=== PATIENT | female | born 1990 | race Caucasian/White ===

== ENCOUNTER 2023-08-01 21:08 | Inpatient (IN) | payer OTHER, SELFPAY ==
--- NOTE | 2023-08-01 | ECG_ITS ---
Test Reason : SEIZYRE Blood Pressure : / mmHG Vent. Rate : 111 BPM Atrial Rate : 111 BPM P-R Int : 120 ms QRS Dur : 074 ms QT Int : 354 ms P-R-T Axes : 031 024 -15 degrees QTc Int : 481 ms Sinus tachycardia Anterior infarct , age undetermined Abnormal ECG No previous ECGs available Referred By: Valorie Styles Electronically Signed By:Blas Lopez
--- NOTE | ~2023-08-01 | US_ITS ---
EXAMINATION: US ABDOMEN COMPLETE CLINICAL INFORMATION: Elevated LFTs, EtOH abuse. Rule out ascites. COMPARISON: None available. TECHNIQUE: Real-time imaging of the abdominal viscera. FINDINGS: PANCREAS: Normal. ABDOMINAL AORTA: The proximal, mid, and distal segments are normal in caliber. INFERIOR VENA CAVA: Visualized portions are normal. LIVER: Normal. The liver is normal in size. The liver contour is normal. Parenchymal echogenicity is normal. No focal hepatic lesion. There is no intrahepatic biliary duct dilatation seen. GALLBLADDER gallbladder wall thickness is 0.3 cm. The gallbladder is physiologically distended without evidence of stones, sludge, polyps, wall thickening or pericholecystic fluid. COMMON BILE DUCT: Normal in caliber measuring 0.4 cm in diameter. RIGHT KIDNEY: Normal. No hydronephrosis. No renal calculi or focal parenchymal lesions. The kidney measures 11.3 cm in maximum dimension. LEFT KIDNEY: Normal. No hydronephrosis. No renal calculi or focal parenchymal lesions. The kidney measures 11.4 cm in maximum dimension. SPLEEN: The spleen is enlarged. The spleen measures 13.2 cm in maximum dimension. FREE FLUID: There is no ascites seen. US/US abdomen complete IMPRESSION: There is no free fluid in the abdomen. Mild splenomegaly. Rest of the abdominal ultrasound is unremarkable.
--- NOTE | ~2023-08-01 | XR_ITS ---
EXAMINATION: XR CHEST CLINICAL INFORMATION: Aspiration. COMPARISON: None available. TECHNIQUE: Frontal view of the chest was obtained. FINDINGS: The lungs are well-expanded and clear. Heart size and pulmonary vascularity is normal. No gross bony abnormality seen. XR/XR chest 1V IMPRESSION: Unremarkable chest exam.
--- NOTE | ~2023-08-01 | CT_ITS ---
CT/CT cervical spine wo IV con IMPRESSION: CT brain, CT facial bones and CT cervical spine without contrast. CLINICAL INDICATIONS: Seizure, fall and neck trauma. Pain. COMPARISON: None. TECHNIQUE: 5 mm thin axial and reformatted 2 mm thin sagittal and coronal images of brain were obtained. Axial 3 mm thin and reformatted 1.5 mm thin sagittal coronal images of facial bones were obtained. Lastly axial 3 minutes thin and reformatted 2 mm thin sagittal coronal images of cervical spine were obtained. DLP [id number]. FINDINGS: Brain: There is no acute intra-axial, extra-axial bleed, masses or midline shift. There is no acute infarction evolution. There is no edema. The raymundo to white matter differentiation is maintained normal. The lateral ventricles are symmetrical in size and normal. Bone windows reveal right periorbital and frontal soft tissue swelling. No underlying calvarial fracture seen. Bilateral optic globe, optic nerves and paranasal sinuses including mastoid sinuses are clear. No scalp soft tissue abnormality seen. Facial bones: The paranasal sinuses are well aerated with minimal mucoperiosteal thickening left maxillary sinus. Rest of the paranasal sinuses are clear.. The bony sinus doshi, lamina papyracea and cribriform plate are intact. There is mild deviation of nasal septum to the right with edmund bullosa of left middle turbinate. The bony orbits, optic globe and optic nerves and extraocular muscles are normal size. There is no fracture involving nasal, maxillofacial or mandible bones. Bilateral TM joints are symmetrical and normal. Cervical spine: There is mild straightening of cervical lordosis. The vertebral heights, alignment and disc heights are normal. There is no visible acute fracture, dislocation or subluxation seen. However there is mild deformity involving superior endplate of T1 vertebra with a small enthesophyte versus a small bone fracture. The prevertebral and paravertebral soft tissues are normal. IMPRESSION:: Right periorbital soft tissue swelling but no underlying fracture involving the right bony alignment on the frontal bone. There is no acute intracranial process seen. Mild mucoperiosteal thickening left maxillary sinus. No acute fracture or traumatic process seen. Mild deviation of nasal septum to the right with edmund bullosa of left middle turbinate there is no visible acute fracture, dislocation subluxation cervical spine.
[2023-08-01 21:26] LABS: Glucose, Whole Blood 144 mg/dL (60-115)
[2023-08-01 21:29] VITALS: BMI 21.5
--- NOTE | 2023-08-01 21:32 | PC.NURSE ---
ENVIRONMENTAL COMPLIANCE MANAGER CALLED [employer] TO CONFIRM PATIENT'S ALLERGIES AND TO REQUEST PAPERWORK TO BE FAXED THE PATIENT CAME WITH LITTLE TO NO DOCUMENTS/PAPERWORK. FAX NUMBER PROVIDED, CHARGE WILL FOLLOW UP. CONTACT IS [phone]
--- NOTE | 2023-08-01 21:40 | PC.NURSE ---
[phone] quentin sissy johnson
[2023-08-01 21:41] LABS: MANUAL DIFF FLAG NO
[2023-08-01 21:49] LABS: INTERNATIONAL NORM RATIO 1.7 (0.9-1.1); Prothrombin Time 20.3 SEC (11.1-13.3)
[2023-08-01] MEDS: PHENobarbitaL sodium 130 MG/ML IM ONCE 228.8 MG IM (21:49)
[2023-08-01 21:50] LABS: Basophils Percent Auto 0.8 % (0-2); Eosinophils Percent Auto 0.2 % (0-4); Hematocrit 30.1 % (37.0-47.0); Hemoglobin 9.8 g/dl (12.0-16.0); Imm Gran Abs Auto 0.05 X10*3/uL (0.00-0.03); Lymphocytes Absolute Auto 0.5 X10*3/uL (1.2-4.9); Mean Corpuscular HGB Conc 32.6 g/dl (31.0-35.0); Mean Corpuscular Hemoglobin 27.6 pg (27.0-33.0); Mean Corpuscular Volume 84.8 fL (80.0-98.0); Mean Platelet Volume 10.4 fL (9.4-12.3); Monocytes Absolute Auto 0.5 X10*3/uL (0.1-1.2); Monocytes Percent Auto 8.7 % (2-11); Neutrophils Absolute Auto 4.1 x10*3/uL (2.0-8.3); Neutrophils Percent Auto 79.3 % (45-73); Red Blood Count 3.55 X10*6/uL (4.20-5.50); Red Cell Distribution Width 17.3 % (11.0-16.0); White Blood Count 5.2 X10*3/uL (4.8-10.8)
--- NOTE | 2023-08-01 21:55 | ED.SEIZURE ---
HPI - Seizure General Chief Complaint: [facility], no hx epilepsy Time Seen by Provider: 08/01/23 21:21 Source: EMS and old records reviewed Mode of arrival: EMS Limitations: altered mental status History of Present Illness HPI Narrative: 33 yo female brought to our hospital from [facility] was in there for about 1 hour intake for depression/anxiety and eating disorder as well as ETOH and liver disease - she had 1 or 2 witnessed GTC seizures lasting 50 seconds. Patient hit her head on the ground. She receieved IM versed 10mg total at 2048 by EMS. She did present to an outside hospital on 07/30 with ETOH level of 360. Was assesed by Crisis at [facility] ([facility]) and serious alcohol use disorder was reported though no seizure hx documented. I see no alcohol withdrawal medications given while she was at [place]. According to the note it looks at though Rosa Elena has been hospitalized in [place], [place] for her mental health and ETOH issues. outside labs Hb 11.4, plts 75 tbili 3.9, dbili 1.6, AST 168, ALT 36 parents number was listed in a note as [phone] complaint: seizure Onset (ago): hour(s) (within the past hour) Description of Episode: loss of consciousness and tonic-clonic movement Duration of episode: 50 -: second(s) Witnessed: Yes - by EMS Trauma: Yes (hit head on ground) Seizure History: No (unknown) Place: [facility] Possible Precipitating Event: alcohol withdrawal Associated symptoms: denies other symptoms Treatments prior to arrival: benzodiazepines Related Data Allergies Allergy/AdvReac Type Severity Reaction Status Date / Time benzonatate Allergy Unknown Verified 08/01/23 21:29 Latex, Natural Rubber Allergy Rash Verified 08/01/23 21:29 Seasonal Allergies Allergy Unknown Verified 08/01/23 21:29 sulfamethoxazole Allergy Unknown Verified 08/01/23 21:29 [From Bactrim] trimethoprim [From Bactrim] Allergy Unknown Verified 08/01/23 21:29 Review of Systems Review of Systems: ROS unable to be obtained due to altered mental status PMFSH Past Medical History Source: old records reviewed Medical History Alcohol abuse Anxiety Depression Social History Social History (Updated 08/01/23 @ 22:18 by Valorie Styles DO) Unable to assess alcohol history related to: Unable to respond Alcohol intake: current Patient Tobacco Use Status: Tobacco use Unknown Smoked in Last 30 Days: No Use of substances other than those prescribed or required for medical reasons: Unable to respond Advance Directives: No Advance Directives Information Provided: No Physical Exam Vital Signs: Vital Signs: Last Vital Signs Temp 98 F 08/01/23 22:09 Pulse 82 08/02/23 03:00 Resp 14 08/02/23 03:00 BP 119/71 08/02/23 03:00 Pulse Ox 97 08/02/23 03:00 O2 Del Method Room Air 08/02/23 03:00 BMI result Body Mass Index 21.5 Appearance: postictal not able to answer questions. Moderate acute distress. Eyes: Pupils equal, round and reactive to light. slightly sluggish. scleral icterus R eye is normal no hyphema EOM i and no subconj hemorrhage ENT: Pharynx she has non bleeding abrasions to both sides of the tongue. Large contusion to R eyebrow area no racoon or galeano signs no hemotympanum no blood from nares Neck: Normal inspection. Neck supple. CVS: tachycardic heart rate and rhythm. Pulses normal. Respiratory: No respiratory distress. Breath sounds normal. Abdomen: Soft and non-tender. Skin: Skin warm and dry. jaundiced skin color. Normal skin turgor. Extremities: No lower extremity edema. Neuro: postictal and medicated cannot participate Course Course Course Narrative: did attempt to call parents no answer did call here he is aware she is at [facility] Reevaluation(s) Reevaluation #1: VS stable, patient did wake up was able to say her name didn't know what happened we had to tell her she was at [facility] went back to sleep afterwards Medications Administered Generic Name Dose Route Start Last Admin Trade Name Freq PRN Reason Stop Dose Admin Dextrose/Sodium Chloride 1,000 mls @ 75 mls/hr 08/02/23 00:15 08/02/23 01:02 D5ns IVCONT 75 mls/hr .[id number] JO ANN Administration Phenobarbital Sodium 170.3 mg 08/02/23 02:00 08/02/23 02:35 Phenobarbital Sodium 130 Mg/Ml Vial Im Q3hx2 IM 08/02/23 05:01 170.3 mg Q3H JO ANN Administration Protocol Discontinued Medications Generic Name Dose Route Start Last Admin Trade Name Sharon PRN Reason Stop Dose Admin Magnesium Sulfate 2 gm in 50 mls @ 25 mls/hr 08/01/23 21:30 08/02/23 00:05 Magnesium Sulfate/H2o IV 08/01/23 23:29 Infused ONCE ONE Infusion Thiamine HCl 200 mg/ Sodium 102 mls @ 204 mls/hr 08/01/23 21:30 08/01/23 23:48 Chloride IV 08/01/23 21:59 Infused ONCE ONE Infusion Sodium Chloride 1,000 mls @ 999 mls/hr 08/01/23 21:30 08/01/23 23:17 Ns IV 08/01/23 22:30 Infused .Q1H1M JO ANN Infusion Ondansetron HCl 4 mg 08/01/23 21:30 08/01/23 22:05 Ondansetron Hcl 4 Mg/2 Ml Vial IVPUSH 08/01/23 21:31 4 mg ONCE ONE Administration Pantoprazole Sodium 40 mg 08/02/23 00:15 08/02/23 01:17 Pantoprazole Sodium 40 Mg/10 Ml Vial IVPUSH Not Given DAILY JO ANN Phenobarbital Sodium 228.8 mg 08/01/23 22:00 08/01/23 21:49 Phenobarbital Sodium 130 Mg/Ml Im Once IM 08/01/23 22:01 228.8 mg ONCE ONE Administration Protocol Medical Decision Making Medical Decision Making [facility] Narrative: 33 yo female with PMH of eating disorder, depression/anxiety, alcohol use disorder here from intake at [facility] with witnessed seizure at this time given head trauma and prior abnormal labs from [facility] will start on phenobarb protocol, thiamine, IVF, CT head/cspine/facial. CXR for aspiration, empiric magnesium and monitor her airway closely. Will call and notify her parents as well. Differential Diagnosis Differential Diagnoses: The differential diagnosis associated with the presentation includes alcohol withdrawal seizure, head injury, facial fracture, lyte abnormality Admission/Observation Consideration of admission/observation: Escalation of care including admission/observation considered admission pending head CT and labs - needs ETOH withdrawal seizure workup Consult Healthcare Provider Management of the patient was discussed with: Hospitalist (will admit) Lab Data [facility] Lab Attestation statement: I reviewed the patient's lab results. 08/02/23 01:52 08/01/23 21:35 Labs: Lab Results 08/01/23 08/01/23 08/01/23 Range/Units 21:22 21:34 21:35 WBC 5.2 (4.8-10.8) X10*3/uL RBC 3.55 L (4.20-5.50) X10*6/uL Hgb 9.8 L (12.0-16.0) g/dl Hct 30.1 L (37.0-47.0) % MCV 84.8 (80.0-98.0) fL MCH 27.6 (27.0-33.0) pg MCHC 32.6 (31.0-35.0) g/dl RDW 17.3 H (11.0-16.0) % Plt Count 32 L (160-400) X10*3/uL MPV 10.4 (9.4-12.3) fL Immature Gran % (Auto) 1.0 H (0.0-0.4) % Neut % (Auto) 79.3 H (45-73) % Lymph % (Auto) 10.0 L (20-40) % [place] % (Auto) 8.7 (2-11) % Eos % (Auto) 0.2 (0-4) % Baso % (Auto) 0.8 (0-2) % Lymph # (Auto) 0.5 L (1.2-4.9) X10*3/uL [place] # (Auto) 0.5 (0.1-1.2) X10*3/uL Eos # (Auto) 0.0 (0.0-0.4) X10*3/uL Baso # (Auto) 0.0 (0.0-0.2) X10*3/uL Abs Immat Gran (auto) 0.05 H (0.00-0.03) X10*3/uL Absolute Neuts (auto) 4.1 (2.0-8.3) x10*3/uL Absolute Nucleated RBC 0.000 (0.0-0.012) X10*3/uL Nucleated RBC % (auto) 0.0 (0.0-0.2) /100WBC Hold Purple Top SEE NOTE PT 20.3 H (11.1-13.3) SEC INR 1.7 H (0.9-1.1) Sodium 134 L (135-145) mmol/L Potassium 3.5 (3.3-5.1) mmol/L Chloride 95 L (96-108) mmol/L Carbon Dioxide 21 L (22-29) mmol/L Anion Gap 22 H (12-20) BUN 6 L (9-16) mg/dL Creatinine 0.79 (0.5-1.4) mg/dL Estim Creat Clear Calc 91.1 Estimated GFR > 60 POC Glucose 144 H (60-115) mg/dL Random Glucose 148 H (60-115) mg/dL Calcium 8.8 (8.4-10.2) mg/dL Magnesium 1.7 (1.6-2.6) mg/dL Total Bilirubin 6.1 H (0.0-1.0) mg/dL Direct Bilirubin 2.7 H (0.0-0.5) mg/dL AST 112 H (5-31) U/L ALT 30 (0-31) U/L Alkaline Phosphatase 96 (39-117) U/L Ammonia (13-55) umol/L Total Creatine Kinase 395 H (26-140) U/L Troponin I High Sens 6.0 (<3.5-17.0) ng/L Total Protein 8.4 H (6.5-8.0) g/dL Albumin 4.3 (3.5-5.0) g/dL Procalcitonin 0.08 ng/mL Beta HCG, Quant < 2 mIU/mL Ethyl Alcohol < 10 mg/dL Influenza Type A (PCR) NEGATIVE (Negative) Influenza Type B (PCR) NEGATIVE (Negative) RSV RNA Qual (PCR) NEGATIVE (Negative) SARS-CoV-2 RNA (RT-PCR) NEGATIVE (Negative) Blood Type Antibody Screen 08/01/23 08/01/23 Range/Units 21:47 22:28 WBC (4.8-10.8) X10*3/uL RBC (4.20-5.50) X10*6/uL Hgb (12.0-16.0) g/dl Hct (37.0-47.0) % MCV (80.0-98.0) fL MCH (27.0-33.0) pg MCHC (31.0-35.0) g/dl RDW (11.0-16.0) % Plt Count (160-400) X10*3/uL MPV (9.4-12.3) fL Immature Gran % (Auto) (0.0-0.4) % Neut % (Auto) (45-73) % Lymph % (Auto) (20-40) % [place] % (Auto) (2-11) % Eos % (Auto) (0-4) % Baso % (Auto) (0-2) % Lymph # (Auto) (1.2-4.9) X10*3/uL [place] # (Auto) (0.1-1.2) X10*3/uL Eos # (Auto) (0.0-0.4) X10*3/uL Baso # (Auto) (0.0-0.2) X10*3/uL Abs Immat Gran (auto) (0.00-0.03) X10*3/uL Absolute Neuts (auto) (2.0-8.3) x10*3/uL Absolute Nucleated RBC (0.0-0.012) X10*3/uL Nucleated RBC % (auto) (0.0-0.2) /100WBC Hold Purple Top PT (11.1-13.3) SEC INR (0.9-1.1) Sodium (135-145) mmol/L Potassium (3.3-5.1) mmol/L Chloride (96-108) mmol/L Carbon Dioxide (22-29) mmol/L Anion Gap (12-20) BUN (9-16) mg/dL Creatinine (0.5-1.4) mg/dL Estim Creat Clear Calc Estimated GFR POC Glucose (60-115) mg/dL Random Glucose (60-115) mg/dL Calcium (8.4-10.2) mg/dL Magnesium (1.6-2.6) mg/dL Total Bilirubin (0.0-1.0) mg/dL Direct Bilirubin (0.0-0.5) mg/dL AST (5-31) U/L ALT (0-31) U/L Alkaline Phosphatase (39-117) U/L Ammonia 149 H (13-55) umol/L Total Creatine Kinase (26-140) U/L Troponin I High Sens (<3.5-17.0) ng/L Total Protein (6.5-8.0) g/dL Albumin (3.5-5.0) g/dL Procalcitonin ng/mL Beta HCG, Quant mIU/mL Ethyl Alcohol mg/dL Influenza Type A (PCR) (Negative) Influenza Type B (PCR) (Negative) RSV RNA Qual (PCR) (Negative) SARS-CoV-2 RNA (RT-PCR) (Negative) Blood Type A Negative Antibody Screen NEGATIVE Independent Interpretation I performed an independent interpretation of an: EKG, Plain X-Ray (no aspiration) and CT Scan (no acute trauma) Interpretation: Rate: 111 Rhythm: sinus tachycardia [place]:normal Normal P waves. Normal CM. Normal QRS complex. ST T wave : nonspecific ant t wave changs, no NAGA qTC: 481 prior studies: no prior The study has been interpreted contemporaneously by me. . Radiology Impression Discussion of test interpretation with radiology: I have reviewed the radiologist's reading. Independent Historian Clinical information obtained from an independent historian. History obtained from or confirmed by: EMS Procedures FAST Exam FAST Exam 1: Fluid in Morison's pouch: No Fluid in Splenorenal Junction: No Fluid around bladder, Transverse view: No Fluid around bladder, Sagittal view: No Fluid in Pericardial Sac: No Gross Wall Motion Abnormality: No Study normal for this patient: Yes Images saved for further review: No Critical Care Time Critical Care Time Critical Care Time: Yes Total Critical Care Time: 60 Attestation: review of outside records, seizure treatments and withdrawal protocols, IV magnesium I attest to this time spent taking care of the patient Discharge Plan Discharge Clinical Impression: Thrombocytopenia, Hyperbilirubinemia Alcohol withdrawal seizure Qualifiers: Complication of substance-induced condition: with unspecified complication Qualified Code(s): F10.939 - Alcohol use, unspecified with withdrawal, unspecified Patient Disposition: Admitted As Inpatient
[2023-08-01 21:59] LABS: Ammonia 149 umol/L (13-55)
[2023-08-01 22:00] VITALS: BP 115/74; PULSE 85; RESP 16; TEMP 36.6; O2SAT 99
[2023-08-01 22:00] LABS: Platelet Count 32 X10*3/uL (160-400)
[2023-08-01 22:02] LABS: Ethanol < 10 mg/dL
[2023-08-01 22:05] LABS: Alanine Aminotransferase 30 U/L (0-31); Albumin Level 4.3 g/dL (3.5-5.0); Alkaline Phosphatase 96 U/L (39-117); Anion Gap 22 (12-20); Aspartate Amino Transferase 112 U/L (5-31); Bilirubin Direct 2.7 mg/dL (0.0-0.5); Bilirubin Total 6.1 mg/dL (0.0-1.0); Blood Urea Nitrogen 6 mg/dL (9-16); Calcium 8.8 mg/dL (8.4-10.2); Carbon Dioxide 21 mmol/L (22-29); Chloride 95 mmol/L (96-108); Creatinine Clr Calc Pharmacy 91.1; Estimated Glomerular Filt Rate > 60; Glucose Random 148 mg/dL (60-115); HCG Quantitative < 2 mIU/mL; Magnesium 1.7 mg/dL (1.6-2.6); Potassium 3.5 mmol/L (3.3-5.1); Sodium 134 mmol/L (135-145); Total Protein 8.4 g/dL (6.5-8.0)
[2023-08-01] MEDS: ondansetron HCL 4 MG/2 ML VIAL IVPUSH (22:05)
[2023-08-01] MEDS: Magnesium Sulfate/H2O 2 GM/50 ML PIGGYBACK IV (22:05)
[2023-08-01] MEDS: 0.9 % Sodium Chloride 1,000 ML 999 ML IV (22:08)
[2023-08-01 22:09] VITALS: BP 129/81; BP 146/92; PULSE 115; PULSE 127; RESP 16; TEMP 36.6; O2SAT 97; O2SAT 99; BMI 21.5
[2023-08-01 22:23] LABS: Procalcitonin 0.08 ng/mL
[2023-08-01 22:30] LABS: Influenza A PCR NEGATIVE (Negative); Influenza B PCR NEGATIVE (Negative); Resp Syncy Virus RNA Qual PCR NEGATIVE (Negative); SARS COV2 PCR INHOUSE NEGATIVE (Negative)
--- NOTE | 2023-08-01 22:47 | PC.NURSE ---
MAX GIVEN UPDATE AND ADVISED OF LIKELY ADMISSION FOR ETOH WITHDRAWAL SEIZURE. HE IS CURRENTLY OUT OF TOWN IN [place].
--- NOTE | 2023-08-01 23:00 | PC.NURSE ---
Patient laying in bed, opens eyes to voice but unable to answer questions @ this time. labs have resulted, awaiting CT results\. [facility] staff dropped belongings off.
[2023-08-01] MEDS: Thiamine HCL 200 MG in 0.9 % Sodium Chloride 100 ML 204 MG IV (23:18)
[2023-08-02] VITALS (7 sets, daily range): BP systolic 119–138; BP diastolic 57–94; PULSE 63–103; RESP 13–20; TEMP 36.5–37.1; O2SAT 94–99
--- NOTE | 2023-08-02 00:12 | MHC.EDTECH ---
Patient belongings in Pod locker 11
--- NOTE | 2023-08-02 00:16 | P.HPHOSP_ITS ---
History of Present Illness Date of Service: 08/02/23 Attending physician on admission: Kerry Dill Chief Complaint: Seizures Rosa Elena Roy is a 33 years old woman with PMHx of significant for alcohol abuse, anxiety, eating disorder and depression was brought to the emergency department from psychiatric facility after she developed two events of tonic-clonic seizures (1st - 50 seconds, 2nd 10 seconds). She received treatment with Versed 10 mg IM. The patient hit her head upon falling down. The patient was quite somnolent in however she easily awakens and answers simple questions appropriately. She did not report any acute complaints such as pain or shortness on breath. Prior to be admitted to [facility] the patient was evaluated in the emergency department at [facility] [place]. At that time the patient was sectioned 12. It seems like she was making suicidal comments to her over text. The patient's has had hospitalization for anemia and malnutrition. Patient denied use of illicit drug use or tobacco smoking. Her last alcoholic beverage was 3 days ago. In the ED, she was found to have stable vital sinuses for sinus tachycardia. Blood workup showed hemoglobin 9.8 (Hgb was 11.4 on 07/31/23). Platelets are 32 (prior 75). There is no leukocytosis. CO2 is 21, bilirubin 6.1 (prior 3.9) and AST is elevated. Ammonia is 149. Head, face, C-spine CT scan showed no acute findings. CXR is unremarkable. EKG showed sinus tachycardia. ED tx: Phenobarbital protocol. Magnesium 2 g IV, thiamine 200 mg IV, Zofran 4 mg IV and NS 1 L bolus. Review of Systems 2 Review of Systems: Yes Unobtainable due to mental condition [facility] Medical History Alcohol abuse Anxiety Depression Social History (Updated 08/01/23 @ 22:18 by Valorie Styles DO) Unable to assess alcohol history related to: Unable to respond Alcohol intake: current Patient Tobacco Use Status: Tobacco use Unknown Smoked in Last 30 Days: No Use of substances other than those prescribed or required for medical reasons: Unable to respond Advance Directives: No Advance Directives Information Provided: No Meds Allergies Allergy/AdvReac Type Severity Reaction Status Date / Time benzonatate Allergy Unknown Verified 08/01/23 21:29 Latex, Natural Rubber Allergy Rash Verified 08/01/23 21:29 Seasonal Allergies Allergy Unknown Verified 08/01/23 21:29 sulfamethoxazole Allergy Unknown Verified 08/01/23 21:29 [From Bactrim] trimethoprim [From Bactrim] Allergy Unknown Verified 08/01/23 21:29 Active Medications: Current Medications Folic Acid (Folic Acid 1 Mg Tablet) 1 mg PO DAILY [facility] Stop: 08/05/23 08:59 Sodium Chloride (Ns) 1,000 mls @ 100 mls/hr IVCONT .Q10H JO ANN Thiamine HCl 100 mg/ Sodium (Chloride) 101 mls @ 202 mls/hr IV DAILY [facility] Dextrose/Sodium Chloride (D5ns) 1,000 mls @ 75 mls/hr IVCONT .[id number] [facility] Lactulose (Lactulose 20 Gm/30 Ml Solution) 30 gm PO TID [facility] Lorazepam (Lorazepam 2 Mg/Ml Vial) 2 mg IVPUSH ONCE PRN PRN Reason: Seizures Multivitamins/Vitamin C (Multivitamin Tablet) 1 tab PO DAILY [facility] Stop: 08/05/23 08:59 Pantoprazole Sodium (Pantoprazole Sodium 40 Mg/10 Ml Vial) 40 mg IVPUSH DAILY [facility] Pharmacy Consult (Consult Rx Etoh Phenob Im/Po) 1 each MISCELLANE ONCE PRN; Protocol PRN Reason: Consult order Phenobarbital (Phenobarbital 15 Mg Tablet) 45 mg PO BID [facility]; Protocol Stop: 08/03/23 21:01 Phenobarbital (Phenobarbital 15 Mg Tablet) 15 mg PO BID [facility]; Protocol Stop: 08/05/23 21:01 Phenobarbital (Phenobarbital 15 Mg Tablet) 15 mg PO DAILY [facility]; Protocol Stop: 08/07/23 09:01 Phenobarbital Sodium (Phenobarbital Sodium 130 Mg/Ml Vial Im Q3hx2) 170.3 mg IM Q3H JO ANN; Protocol Stop: 08/02/23 05:01 Sodium Chloride (0.9 % Sodium Chloride Flush 3 Ml Syringe) 3 ml IVFLUSH QSHIFT [facility] Current psychiatric medications: Mirtazapine 15 mg p.o. nightly Trazodone 50 mg p.o. nightly Melatonin 3 mg p.o. nightly Physical Exam 2 Vital Signs and Narrative: Vital Signs: Last Vital Signs Temp 98 F 08/01/23 22:09 Pulse 115 H 08/01/23 22:09 Resp 16 08/01/23 22:09 BP 129/81 08/01/23 22:09 Pulse Ox 99 08/01/23 22:09 O2 Del Method Room Air 08/01/23 22:09 BMI result Body Mass Index 21.5 Constitutional - Somnolence. Easy to arouse. Acutely ill looking HEENT - PERRL. Right eye: Periorbital edema and hematoma. Sclera is icteric. Heart - Tachycardic. Normal rate. No murmurs Lungs - Normal lung expansion, Normal respiratory effort, No respiratory distress, CTA bilaterally Abdomen - NT / ND; +BS; No rebound or guarding Extremities - no calf tenderness bilaterally, no swelling Musculoskeletal - Normal inspection, normal ROM Skin - Warm/Dry. Jaundice. Neurological - Somnolent. Opens eyes upon calling her name. Answered questions appropriately. No focal weakness grossly noted. Psychological - Depressed affect Results Labs 08/01/23 21:34 08/01/23 21:35 Labs: Laboratory Results - last 24 hr 08/01/23 08/01/23 08/01/23 21:22 21:34 21:35 MCV 84.8 MCH 27.6 MCHC 32.6 RDW 17.3 H Plt Count 32 L MPV 10.4 Immature Gran % (Auto) 1.0 H Neut % (Auto) 79.3 H Lymph % (Auto) 10.0 L [place] % (Auto) 8.7 Eos % (Auto) 0.2 Baso % (Auto) 0.8 Lymph # (Auto) 0.5 L [place] # (Auto) 0.5 Eos # (Auto) 0.0 Baso # (Auto) 0.0 Abs Immat Gran (auto) 0.05 H Absolute Neuts (auto) 4.1 Absolute Nucleated RBC 0.000 Nucleated RBC % (auto) 0.0 Hold Purple Top SEE NOTE PT 20.3 H INR 1.7 H Anion Gap 22 H Estim Creat Clear Calc 91.1 Estimated GFR > 60 POC Glucose 144 H Random Glucose 148 H Calcium 8.8 Magnesium 1.7 Total Bilirubin 6.1 H Direct Bilirubin 2.7 H AST 112 H ALT 30 Alkaline Phosphatase 96 Ammonia Total Creatine Kinase 395 H Troponin I High Sens 6.0 Total Protein 8.4 H Albumin 4.3 Procalcitonin 0.08 Beta HCG, Quant < 2 Ethyl Alcohol < 10 Influenza Type A (PCR) NEGATIVE Influenza Type B (PCR) NEGATIVE RSV RNA Qual (PCR) NEGATIVE SARS-CoV-2 RNA (RT-PCR) NEGATIVE Blood Type Antibody Screen 08/01/23 08/01/23 21:47 22:28 MCV MCH MCHC RDW Plt Count MPV Immature Gran % (Auto) Neut % (Auto) Lymph % (Auto) [place] % (Auto) Eos % (Auto) Baso % (Auto) Lymph # (Auto) [place] # (Auto) Eos # (Auto) Baso # (Auto) Abs Immat Gran (auto) Absolute Neuts (auto) Absolute Nucleated RBC Nucleated RBC % (auto) Hold Purple Top PT INR Anion Gap Estim Creat Clear Calc Estimated GFR POC Glucose Random Glucose Calcium Magnesium Total Bilirubin Direct Bilirubin AST ALT Alkaline Phosphatase Ammonia 149 H Total Creatine Kinase Troponin I High Sens Total Protein Albumin Procalcitonin Beta HCG, Quant Ethyl Alcohol Influenza Type A (PCR) Influenza Type B (PCR) RSV RNA Qual (PCR) SARS-CoV-2 RNA (RT-PCR) Blood Type A Negative Antibody Screen NEGATIVE Imaging Radiologist's Impressions: Impressions Chest X-Ray 08/01/23 22:07 IMPRESSION: Unremarkable chest exam. Cervical Spine CT 08/01/23 22:41 IMPRESSION: CT brain, CT facial bones and CT cervical spine without contrast. CLINICAL INDICATIONS: Seizure, fall and neck trauma. Pain. COMPARISON: None. TECHNIQUE: 5 mm thin axial and reformatted 2 mm thin sagittal and coronal images of brain were obtained. Axial 3 mm thin and reformatted 1.5 mm thin sagittal coronal images of facial bones were obtained. Lastly axial 3 minutes thin and reformatted 2 mm thin sagittal coronal images of cervical spine were obtained. DLP 1123. FINDINGS: Brain: There is no acute intra-axial, extra-axial bleed, masses or midline shift. There is no acute infarction evolution. There is no edema. The raymundo to white matter differentiation is maintained normal. The lateral ventricles are symmetrical in size and normal. Bone windows reveal right periorbital and frontal soft tissue swelling. No underlying calvarial fracture seen. Bilateral optic globe, optic nerves and paranasal sinuses including mastoid sinuses are clear. No scalp soft tissue abnormality seen. Facial bones: The paranasal sinuses are well aerated with minimal mucoperiosteal thickening left maxillary sinus. Rest of the paranasal sinuses are clear.. The bony sinus doshi, lamina papyracea and cribriform plate are intact. There is mild deviation of nasal septum to the right with edmund bullosa of left middle turbinate. The bony orbits, optic globe and optic nerves and extraocular muscles are normal size. There is no fracture involving nasal, maxillofacial or mandible bones. Bilateral TM joints are symmetrical and normal. Cervical spine: There is mild straightening of cervical lordosis. The vertebral heights, alignment and disc heights are normal. There is no visible acute fracture, dislocation or subluxation seen. However there is mild deformity involving superior endplate of T1 vertebra with a small enthesophyte versus a small bone fracture. The prevertebral and paravertebral soft tissues are normal. IMPRESSION:: Right periorbital soft tissue swelling but no underlying fracture involving the right bony alignment on the frontal bone. There is no acute intracranial process seen. Mild mucoperiosteal thickening left maxillary sinus. No acute fracture or traumatic process seen. Mild deviation of nasal septum to the right with edmund bullosa of left middle turbinate there is no visible acute fracture, dislocation subluxation cervical spine. Face CT 08/01/23 22:41 IMPRESSION: CT brain, CT facial bones and CT cervical spine without contrast. CLINICAL INDICATIONS: Seizure, fall and neck trauma. Pain. COMPARISON: None. TECHNIQUE: 5 mm thin axial and reformatted 2 mm thin sagittal and coronal images of brain were obtained. Axial 3 mm thin and reformatted 1.5 mm thin sagittal coronal images of facial bones were obtained. Lastly axial 3 minutes thin and reformatted 2 mm thin sagittal coronal images of cervical spine were obtained. DLP 1123. FINDINGS: Brain: There is no acute intra-axial, extra-axial bleed, masses or midline shift. There is no acute infarction evolution. There is no edema. The raymundo to white matter differentiation is maintained normal. The lateral ventricles are symmetrical in size and normal. Bone windows reveal right periorbital and frontal soft tissue swelling. No underlying calvarial fracture seen. Bilateral optic globe, optic nerves and paranasal sinuses including mastoid sinuses are clear. No scalp soft tissue abnormality seen. Facial bones: The paranasal sinuses are well aerated with minimal mucoperiosteal thickening left maxillary sinus. Rest of the paranasal sinuses are clear.. The bony sinus doshi, lamina papyracea and cribriform plate are intact. There is mild deviation of nasal septum to the right with edmund bullosa of left middle turbinate. The bony orbits, optic globe and optic nerves and extraocular muscles are normal size. There is no fracture involving nasal, maxillofacial or mandible bones. Bilateral TM joints are symmetrical and normal. Cervical spine: There is mild straightening of cervical lordosis. The vertebral heights, alignment and disc heights are normal. There is no visible acute fracture, dislocation or subluxation seen. However there is mild deformity involving superior endplate of T1 vertebra with a small enthesophyte versus a small bone fracture. The prevertebral and paravertebral soft tissues are normal. IMPRESSION:: Right periorbital soft tissue swelling but no underlying fracture involving the right bony alignment on the frontal bone. There is no acute intracranial process seen. Mild mucoperiosteal thickening left maxillary sinus. No acute fracture or traumatic process seen. Mild deviation of nasal septum to the right with edmund bullosa of left middle turbinate there is no visible acute fracture, dislocation subluxation cervical spine. Head CT 08/01/23 22:41 IMPRESSION: CT brain, CT facial bones and CT cervical spine without contrast. CLINICAL INDICATIONS: Seizure, fall and neck trauma. Pain. COMPARISON: None. TECHNIQUE: 5 mm thin axial and reformatted 2 mm thin sagittal and coronal images of brain were obtained. Axial 3 mm thin and reformatted 1.5 mm thin sagittal coronal images of facial bones were obtained. Lastly axial 3 minutes thin and reformatted 2 mm thin sagittal coronal images of cervical spine were obtained. DLP 1123. FINDINGS: Brain: There is no acute intra-axial, extra-axial bleed, masses or midline shift. There is no acute infarction evolution. There is no edema. The raymundo to white matter differentiation is maintained normal. The lateral ventricles are symmetrical in size and normal. Bone windows reveal right periorbital and frontal soft tissue swelling. No underlying calvarial fracture seen. Bilateral optic globe, optic nerves and paranasal sinuses including mastoid sinuses are clear. No scalp soft tissue abnormality seen. Facial bones: The paranasal sinuses are well aerated with minimal mucoperiosteal thickening left maxillary sinus. Rest of the paranasal sinuses are clear.. The bony sinus doshi, lamina papyracea and cribriform plate are intact. There is mild deviation of nasal septum to the right with edmund bullosa of left middle turbinate. The bony orbits, optic globe and optic nerves and extraocular muscles are normal size. There is no fracture involving nasal, maxillofacial or mandible bones. Bilateral TM joints are symmetrical and normal. Cervical spine: There is mild straightening of cervical lordosis. The vertebral heights, alignment and disc heights are normal. There is no visible acute fracture, dislocation or subluxation seen. However there is mild deformity involving superior endplate of T1 vertebra with a small enthesophyte versus a small bone fracture. The prevertebral and paravertebral soft tissues are normal. IMPRESSION:: Right periorbital soft tissue swelling but no underlying fracture involving the right bony alignment on the frontal bone. There is no acute intracranial process seen. Mild mucoperiosteal thickening left maxillary sinus. No acute fracture or traumatic process seen. Mild deviation of nasal septum to the right with edmund bullosa of left middle turbinate there is no visible acute fracture, dislocation subluxation cervical spine. Assessment and Plan (1) Alcohol withdrawal seizure: Qualifiers: Complication of substance-induced condition: with unspecified complication Qualified Code(s): F10.939 - Alcohol use, unspecified with withdrawal, unspecified; R56.9 - Unspecified convulsions Status: Acute (2) Thrombocytopenia: Status: Acute (3) Anemia: Qualifiers: Anemia type: unspecified type Qualified Code(s): D64.9 - Anemia, unspecified Status: Acute Plan Rosa Elena Roy is a 33 years old woman admitted with: * Alcohol withdrawal seizures. Admit to hospitalist service. Seizure and aspiration precautions. CIWA protocol: Phenobarbital protocol. Continue thiamine 100 mg IV daily. Start treatment with multivitamins and folic acid. Start IV fluid with D5. * Worsening anemia (Hbg 11.4 --> 9.8). GI bleeding? Recheck CBC at 2 AM. Start Protonix 40 mg IV twice daily. To consider treatment with octreotide. Stool for occult blood pending. * Thrombocytopenia secondary to liver failure. Continue to monitor and transfuse platelets as if needed. * Alcoholic liver failure. Avoid hepatotoxins such as Tylenol. Alcohol abstinence. GI consult. * Encephalopathy likely multifactorial: Recent seizure activity, medications: Versed and phenobarbital + hepatic encephalopathy. Aspiration precaution. Start lactulose. * Alcohol abuse, anxiety, eating disorder and depression. Psychiatric consult. Hold psych meds: Trazodone or mirtazapine was the patient is currently quite sedated. DVT prophylaxis: SCDs Code status: Full Patient will need hospitalization for at least 2 midnights for alcohol withdrawal seizures treatment with phenobarbital, thiamine and IV fluids. She also will need close monitoring of hemoglobin and platelets. Quality Stroke Does the patient have a stroke diagnosis?: No VTE Prior VTE?: No VTE Risk Level:: Medical - moderate - high VTE Device Contraindication: N/A - Device Ordered VTE Drug Contraindication: Treatment Not Indicated
[2023-08-02] MEDS: Dextrose 5 % and 0.9 % NaCl 1,000 ML 75 ML IVCONT (01:02)
[2023-08-02 01:26] LABS: OBS Int Ctl Valid YES; OBS1 NEGATIVE (NEGATIVE)
[2023-08-02 02:05] LABS: PLT CLUMP 1
[2023-08-02 02:07] LABS: Hematocrit 26.8 % (37.0-47.0); Mean Corpuscular HGB Conc 33.6 g/dl (31.0-35.0); Mean Corpuscular Volume 83.5 fL (80.0-98.0); Mean Platelet Volume 9.6 fL (9.4-12.3); Red Blood Count 3.21 X10*6/uL (4.20-5.50); Red Cell Distribution Width 17.2 % (11.0-16.0)
[2023-08-02 02:17] LABS: Platelet Count 25 X10*3/uL (160-400); White Blood Count 6.4 X10*3/uL (4.8-10.8)
[2023-08-02] MEDS: PHENobarbitaL sodium 130 MG/ML VIAL IM Q3Hx2 170.3 MG IM ×2 (02:35→06:19)
[2023-08-02 05:57] LABS: Hematocrit 27.3 % (37.0-47.0); Hemoglobin 9.3 g/dl (12.0-16.0); Mean Corpuscular HGB Conc 34.1 g/dl (31.0-35.0); Mean Corpuscular Hemoglobin 28.7 pg (27.0-33.0); Mean Corpuscular Volume 84.3 fL (80.0-98.0); Mean Platelet Volume 9.2 fL (9.4-12.3); Red Blood Count 3.24 X10*6/uL (4.20-5.50); Red Cell Distribution Width 17.2 % (11.0-16.0); White Blood Count 5.5 X10*3/uL (4.8-10.8)
[2023-08-02 05:58] LABS: Platelet Count 25 X10*3/uL (160-400)
[2023-08-02 06:02] LABS: INTERNATIONAL NORM RATIO 1.8 (0.9-1.1); Prothrombin Time 21.7 SEC (11.1-13.3)
[2023-08-02] MEDS: Pantoprazole Sodium 40 MG/10 ML VIAL IVPUSH ×2 (06:24→15:44)
[2023-08-02 06:49] LABS: Alanine Aminotransferase 23 U/L (0-31); Albumin Level 3.4 g/dL (3.5-5.0); Alkaline Phosphatase 77 U/L (39-117); Anion Gap 11 (12-20); Aspartate Amino Transferase 97 U/L (5-31); Bilirubin Total 5.9 mg/dL (0.0-1.0); Blood Urea Nitrogen 4 mg/dL (9-16); Calcium 7.6 mg/dL (8.4-10.2); Carbon Dioxide 24 mmol/L (22-29); Chloride 103 mmol/L (96-108); Creatinine Clr Calc Pharmacy 126.3; Estimated Glomerular Filt Rate > 60; Glucose Random 104 mg/dL (60-115); Sodium 135 mmol/L (135-145); Total Protein 6.8 g/dL (6.5-8.0)
[2023-08-02 06:51] LABS: Potassium 2.8 mmol/L (3.3-5.1)
[2023-08-02] MEDS: Potassium Chloride/H20 10 MEQ/100 ML PIGGYBACK 100 MEQ IV ×8 (07:24→17:57)
--- NOTE | 2023-08-02 07:26 | PC.NURSE ---
pt is awake and alert, states facial and back pain, she has iv fluids infusing in her right ac line. significant right eye an facial swelling and bruising noted.
--- NOTE | 2023-08-02 07:42 | PHA.MEDREC ---
Addendum entered by Candice Serrano [facility] 08/02/23 07:45: Courtney Dutton notified med rec complete. 08/02/23 @0745 Original Note: Pharmacy Consult ? Medication Reconciliation Pharmacy has completed the medication reconciliation. Spoke with patient in the ED. patient able to list off medications. Patient recently at [facility] and transferred to [facility]. To confirm medications tried to call [facility] but patient had seziure during intake so they have limited information.
--- NOTE | 2023-08-02 07:43 | P.CNGI_ITS ---
History of Present Illness Data of Consult Service Date: 08/02/23 Requesting physician: Kerry Dill Primary Care Provider: Go LAIRD Reason for consult: Elevated LFTs, worsening anemia 33 YF with alcohol abuse, anxiety, eating disorder and depression brought to [facility] ED on 08/01/23 from a psychiatric facility after she developed two events of tonic-clonic seizures and hit her head upon falling down. Pt was treated with Versed 10 mg IM. On arrival at the ED, pt was somnolent and awakened easily and answered appropriately to simple questions. She denied pain or shortness on breath. Pt was evaluated in the [facility] ED prior to being admitted to [facility] and was sectioned 12. It seems she was making suicidal comments to her over text. The patient reports she was hospitalized ay [facility] 3-4 months ago and was evaluated for anemia and malnutrition - Medical records were requested. 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 Pt reports her HIV test was ? false positive and FU test was negative. She was discharged on oral iron replacement. Patient complains of back pain and denies heartburn, dysphagia, abdominal pain, change in bowel habits, melena or hematochezia. She reports having a small appetite and eats like a bird . Pt states her periods are infrequent, lats 2-3 days and are not heavy. Her weigth fluctuates by 5 lbs. Patient admits to taking Marijuana gummies to help her sleep and denies use of illicit drug use or tobacco smoking. Pt reports she started drinking end of High school and continued to drink during and a few years after her college years. She states she drinks 4-5 drinks of hard liquor daily and quitted a few months ago on her own. She had 4-5 drinks of Vodka over last weekend Her last alcoholic beverage was 3 days ago. 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 In the ED, she was found to have sinus tachycardia and otherwise stable vital signs. Labs showed normal WBC count, hemoglobin 9.8 (Hgb was 11.4 on 07/31/23), Platelets 32 (prior 75). CO2 is 21, bilirubin 6.1 (prior 3.9) and AST is elevated. Ammonia is 149. Head, face, C-spine CT scan showed no acute findings. CXR is unremarkable. EKG showed sinus tachycardia. ED tx: Phenobarbital protocol. Magnesium 2 g IV, thiamine 200 mg IV, Zofran 4 mg IV and NS 1 L bolus. 08/01/23 ABD US SHOWED: LIVER: Normal. The liver is normal in size. The liver contour is normal. Parenchymal echogenicity is normal. No focal hepatic lesion. There is no intrahepatic biliary duct dilatation seen. GALLBLADDER gallbladder wall thickness is 0.3 cm. The gallbladder is physiologically distended without evidence of stones, sludge, polyps, wall thickening or pericholecystic fluid. SPLEEN: The spleen is enlarged. The spleen measures 13.2 cm in maximum dimension. FREE FLUID: There is no ascites seen. IMPRESSION: There is no free fluid in the abdomen. Mild splenomegaly. Review of Systems 2 Review of Systems: Yes all other systems are reviewed and are negative [facility] Past Medical History Medical History (Updated 08/03/23 @ 16:29 by Monty Navarrete MD) Alcohol abuse Anxiety Depression Social History Social History (Updated 08/01/23 @ 22:18 by Valorie Styles DO) Household Members: Significant Other Housing: Apartment Do you presently have visiting nurse or other home services: No Unable to assess alcohol history related to: Unable to respond Alcohol intake: current Comment: 1:1 sitter Patient Tobacco Use Status: Never used Tobacco e-Cigarette/Vaping Use: Former Use Second Hand Smoke Exposure: No Substance Use Type: Marijuana service: No Meds Allergies Allergy/AdvReac Type Severity Reaction Status Date / Time benzonatate Allergy Unknown Verified 08/01/23 21:29 Latex, Natural Rubber Allergy Rash Verified 08/01/23 21:29 Seasonal Allergies Allergy Unknown Verified 08/01/23 21:29 sulfamethoxazole Allergy Unknown Verified 08/01/23 21:29 [From Bactrim] trimethoprim [From Bactrim] Allergy Unknown Verified 08/01/23 21:29 Active Medications: Current Medications Folic Acid (Folic Acid 1 Mg Tablet) 1 mg PO DAILY [facility] Stop: 08/05/23 08:59 Thiamine HCl 100 mg/ Sodium (Chloride) 101 mls @ 202 mls/hr IV DAILY JO ANN Dextrose/Sodium Chloride (D5ns) 1,000 mls @ 75 mls/hr IVCONT .[id number] [facility] Last Admin: 08/02/23 01:02 Dose: 75 mls/hr Potassium Chloride (Potassium Chloride/H20) 10 meq in 100 mls @ 100 mls/hr IV Q1H [facility] Stop: 08/02/23 14:59 Last Admin: 08/02/23 07:24 Dose: 100 mls/hr Lactulose (Lactulose 20 Gm/30 Ml Solution) 30 gm PO TID [facility] Multivitamins/Vitamin C (Multivitamin Tablet) 1 tab PO DAILY [facility] Stop: 08/05/23 08:59 Pantoprazole Sodium (Pantoprazole Sodium 40 Mg/10 Ml Vial) 40 mg IVPUSH BID@0630,1630 [facility] Last Admin: 08/02/23 06:24 Dose: 40 mg Pharmacy Consult (Consult Rx Etoh Phenob Im/Po) 1 each MISCELLANE ONCE PRN; Protocol PRN Reason: Consult order Phenobarbital (Phenobarbital 15 Mg Tablet) 45 mg PO BID [facility]; Protocol Stop: 08/03/23 21:01 Phenobarbital (Phenobarbital 15 Mg Tablet) 15 mg PO BID [facility]; Protocol Stop: 08/05/23 21:01 Phenobarbital (Phenobarbital 15 Mg Tablet) 15 mg PO DAILY [facility]; Protocol Stop: 08/07/23 09:01 Sodium Chloride (0.9 % Sodium Chloride Flush 3 Ml Syringe) 3 ml IVFLUSH QSHIFT [facility] Last Admin: 08/02/23 07:24 Dose: Not Given Home Medications Medication Instructions Recorded Confirmed Last Taken Type folic acid 1 mg tablet 1 mg PO DAILY 08/02/23 08/02/23 08/01/23 History magnesium oxide 400 mg (241.3 mg 400 mg PO DAILY 08/02/23 08/02/23 08/01/23 History magnesium) tablet melatonin 3 mg tablet 3 mg PO BEDTIME PRN Insomnia 08/02/23 08/02/23 08/01/23 History mirtazapine 15 mg disintegrating 7.5 mg PO BEDTIME 08/02/23 08/02/23 08/01/23 History tablet therapeutic multivitamin 1 tab PO DAILY 08/02/23 08/02/23 08/01/23 History (Thera-Tabs tablet) thiamine HCl (vitamin B1) 100 mg 100 mg PO DAILY 08/02/23 08/02/23 08/01/23 History tablet trazodone 50 mg tablet 25 mg PO BEDTIME PRN Sleep 08/02/23 08/02/23 08/01/23 History Physical Exam 2 Vital Signs: Vital Signs: Last Vital Signs Temp 97.8 F 08/02/23 07:26 Pulse 103 H 08/02/23 07:26 Resp 14 08/02/23 07:26 BP 129/76 08/02/23 07:26 Pulse Ox 98 08/02/23 07:26 O2 Del Method Room Air 08/02/23 07:26 BMI result Body Mass Index 21.5 Const: General: cooperative, comfortable, no acute distress, alert and awake Nutritional Appearance: thin Orientation/consciousness: patient oriented x3 HEENT: Other: Head: Yes normal to inspection Ears: hearing grossly normal bilaterally Face and sinus: Yes ecchymosis (Right dickson orbital hematoma - resolving) Eyes: Sclerae: sclerae normal Pupils: Equal, round and reactive pupils present Neck: Neck: Yes normal visual inspection Chest: Chest palpation & inspection: normal inspection of the chest Resp: Effort & Inspection: normal respiratory effort, able to speak in complete sentences, no respiratory distress and no use of accessory muscles A uscultation: clear to auscultation bilaterally Cardio: Palpation: normal PMI Rate: regular rate Rhythm: regular rhythm Heart sounds: S1 normal heart sound present, S2 normal heart sound present and no murmurs GI: Inspection: No distended Palpation (GI): Soft to palpation and nontender Auscultation: normal bowel sounds Rectal Exam - Female: deferred Skin: General skin exam: no rashes or lesions noted Neuro: General: patient oriented x3, moves all extremities and CN's II-XI intact bilaterally Cranial nerves: Yes Equal, round and reactive pupils present Extrem: General: Yes no pedal edema Psych: Appearance: grossly normal Mental Status: mental status grossly normal Results Labs 08/04/23 06:12 08/04/23 06:12 Labs: Short CBC 08/01/23 08/02/23 08/02/23 Range/Units 21:34 01:52 05:29 WBC 5.2 6.4 5.5 (4.8-10.8) X10*3/uL Hgb 9.8 L 9.0 L 9.3 L (12.0-16.0) g/dl Hct 30.1 L 26.8 L 27.3 L (37.0-47.0) % Plt Count 32 L 25 L 25 L (160-400) X10*3/uL BMP 08/01/23 08/02/23 21:35 05:29 Sodium 134 L 135 Potassium 3.5 2.8 L* Chloride 95 L 103 Carbon Dioxide 21 L 24 BUN 6 L 4 L Creatinine 0.79 0.57 Calcium 8.8 7.6 L D Cardiac Enzymes 08/01/23 Range/Units 21:35 Total Creatine Kinase 395 H (26-140) U/L Liver Function 08/01/23 08/02/23 Range/Units 21:35 05:29 Total Bilirubin 6.1 H 5.9 H (0.0-1.0) mg/dL Direct Bilirubin 2.7 H (0.0-0.5) mg/dL AST 112 H 97 H (5-31) U/L ALT 30 23 (0-31) U/L Alkaline Phosphatase 96 77 (39-117) U/L Albumin 4.3 3.4 L (3.5-5.0) g/dL Assessment and Plan (1) Anemia: Qualifiers: Anemia type: unspecified type Qualified Code(s): D64.9 - Anemia, unspecified Status: Acute (2) Hyperbilirubinemia: Status: Acute (3) Thrombocytopenia: Status: Acute (4) Alcohol abuse: Status: Acute Plan 33 YF with alcohol abuse, anxiety, eating disorder and depression brought to [facility] ED on 08/01/23 from a psychiatric facility after she developed two events of tonic-clonic seizures and hit her head upon falling down. Pt was treated with Versed 10 mg IM. The patient reports she was hospitalized ay [facility] 3-4 months ago and was evaluated for anemia and malnutrition - Medical records were requested. 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 She was discharged on oral iron replacement. Pt appears to be minimizing her ETOH intake Labs showed normal WBC count, hemoglobin 9.8 (Hgb was 11.4 on 07/31/23), Platelets 32 (prior 75). CO2 is 21, bilirubin 6.1 (prior 3.9) and AST is elevated. Ammonia is 149. Patient has normocytic normochromic anemia with slightly elevated RDW. Etiology of anemia is unclear - unlikely to be related to GI blood loss and stool Hemoccult was negative. Pt likely has a combination of anemia due to nutritional deficiencies and bone marrow suppression for excessive ETOH RECOMMENDATIONS: 1. Agree with IV pantoprazole, antiemetics and CIWE protocol. 2. Check iron studies, Vitamin B12 and folate levels and follow CBC and LFTs daily 3. Hepatitis B and C serologies - negative and showed immunity to Hep B. 4. ETOH rehab ADDENDUM: Iron studies were normal and not suggestive of DANIELLE Vitamin B12 and folate were normal. HOSPITAL COURSE: Patient treated for alcohol withdrawal seizures and normocytic anemia. Patient had witnessed tonic-clonic seizures from alcohol withdrawal. She hit her head after falling and developed severe ecchymosis throughout her entire face. She had cervical, face and head CTA all negative for any acute abnormality or acute fracture. She was treated with phenobarbital protocol. Followed by Psychiatry care team with recommendation for continued psychiatric care. Plan is for transfer to psychiatric facility for further mental health care. Educated on the importance of alcohol cessation. No seizures noted during hospitalization. Normocytic anemia. Seen evaluated by Gastroenterology, unlikely GI losses likely due to marrow suppression in the setting of alcohol use. Stool occult negative. Started on PPI. Thrombocytopenia. Secondary to alcohol abuse. No need for platelet transfusion. Hypomagnesemia and hypokalemia secondary to alcohol abuse. Repleted and resolved Elevated LFTs secondary to alcohol abuse. Encephalopathy likely multifactorial secondary to seizure activity, medications, elevated ammonia. Treated with lactulose. Resolved. History of anxiety, depression, eating disorder. Plan to transfer to psychiatric facility for continued mental health care. Procedures Date of Service Date of Service: 08/09/23
[2023-08-02 08:12] LABS: Magnesium 1.9 mg/dL (1.6-2.6)
[2023-08-02] MEDS: Lactulose 20 GM/30 ML SOLUTION 30 GM PO ×3 (09:09→20:01)
[2023-08-02] MEDS: Multivitamin TABLET 1 TAB PO (09:10)
[2023-08-02] MEDS: PHENobarbitaL 15 MG TABLET 45 MG PO ×2 (09:10→20:00)
[2023-08-02] MEDS: Folic Acid 1 MG TABLET PO (09:10)
[2023-08-02] MEDS: Thiamine HCL 100 MG in 0.9 % Sodium Chloride 100 ML 202 MG IV (10:56)
--- NOTE | 2023-08-02 13:43 | HO.PM.IMPN ---
Subjective Subjective Date of Service: 08/02/23 Interval History: seen and examined this morning follow up for etoh withdrawal seizure patient awake, alert able to answer questions appropriately; significant swelling right eye, no significant pain Review of Systems Review of Systems: Yes all other systems are reviewed and are negative Constitutional Constitutional: Denies chills and Denies fever(s) Cardiovascular Cardiovascular: Denies chest pain, Denies palpitations and Denies dyspnea Respiratory Respiratory: Denies cough and Denies dyspnea Gastrointestinal Gastrointestinal: Denies abdominal pain, Denies nausea and Denies vomiting Endocrine Endocrine: Denies palpitations Physical Exam Vital Signs: Vital Signs: Last Vital Signs Temp 98.7 F 08/02/23 09:34 Pulse 96 08/02/23 09:34 Resp 16 08/02/23 09:34 BP 132/83 08/02/23 09:34 Pulse Ox 99 08/02/23 09:34 O2 Del Method Room Air 08/02/23 09:34 BMI result Body Mass Index 21.5 Const: General: cooperative, comfortable, no acute distress, alert and awake Nutritional Appearance: thin Orientation/consciousness: patient oriented x3 HEENT: Other: Resp: Effort & Inspection: normal respiratory effort, able to speak in complete sentences, no respiratory distress and no use of accessory muscles Auscultation: clear to auscultation bilaterally Cardio: Rate: regular rate GI: Inspection: No distended Palpation (GI): Soft to palpation and nontender Neuro: General: patient oriented x3, moves all extremities and CN's II-XI intact bilaterally Extrem: General: Yes no pedal edema Objective Data Active Medications Folic Acid (Folic Acid 1 Mg Tablet) 1 mg PO DAILY [facility] Stop: 08/05/23 08:59 Last Admin: 08/02/23 09:10 Dose: 1 mg Documented By: HERMAN Thiamine HCl 100 mg/ Sodium (Chloride) 101 mls @ 202 mls/hr IV DAILY [facility] Last Infusion: 08/02/23 11:36 Dose: Infused Documented By: PATRICIA Potassium Chloride (Potassium Chloride/H20) 10 meq in 100 mls @ 100 mls/hr IV Q1H [facility] Stop: 08/02/23 14:59 Last Admin: 08/02/23 13:01 Dose: 100 mls/hr Documented By: PATRICIA Lactulose (Lactulose 20 Gm/30 Ml Solution) 30 gm PO TID [facility] Last Admin: 08/02/23 09:09 Dose: 30 gm Documented By: HERMAN Multivitamins/Vitamin C (Multivitamin Tablet) 1 tab PO DAILY [facility] Stop: 08/05/23 08:59 Last Admin: 08/02/23 09:10 Dose: 1 tab Documented By: HERMAN Pantoprazole Sodium (Pantoprazole Sodium 40 Mg/10 Ml Vial) 40 mg IVPUSH BID@0630,1630 [facility] Last Admin: 08/02/23 06:24 Dose: 40 mg Documented By: GENA Pharmacy Consult (Consult Rx Etoh Phenob Im/Po) 1 each MISCELLANE ONCE PRN; Protocol PRN Reason: Consult order Phenobarbital (Phenobarbital 15 Mg Tablet) 45 mg PO BID [facility]; Protocol Stop: 08/03/23 21:01 Last Admin: 08/02/23 09:10 Dose: 45 mg Documented By: HERMAN Phenobarbital (Phenobarbital 15 Mg Tablet) 15 mg PO BID [facility]; Protocol Stop: 08/05/23 21:01 Phenobarbital (Phenobarbital 15 Mg Tablet) 15 mg PO DAILY [facility]; Protocol Stop: 08/07/23 09:01 Sodium Chloride (0.9 % Sodium Chloride Flush 3 Ml Syringe) 3 ml IVFLUSH QSHIFT [facility] Last Admin: 08/02/23 07:24 Dose: Not Given Documented By: KELSEY Non-Admin Reason: IV Running Labs 08/02/23 05:29 08/02/23 05:29 Labs: Laboratory Results - last 24 hr 08/01/23 08/01/23 08/01/23 21:22 21:34 21:35 MCV 84.8 MCH 27.6 MCHC 32.6 RDW 17.3 H Plt Count 32 L MPV 10.4 Immature Gran % (Auto) 1.0 H Neut % (Auto) 79.3 H Lymph % (Auto) 10.0 L Bartholomew % (Auto) 8.7 Eos % (Auto) 0.2 Baso % (Auto) 0.8 Lymph # (Auto) 0.5 L Bartholomew # (Auto) 0.5 Eos # (Auto) 0.0 Baso # (Auto) 0.0 Abs Immat Gran (auto) 0.05 H Absolute Neuts (auto) 4.1 Absolute Nucleated RBC 0.000 Nucleated RBC % (auto) 0.0 Hold Purple Top SEE NOTE PT 20.3 H INR 1.7 H Anion Gap 22 H Estim Creat Clear Calc 91.1 Estimated GFR > 60 POC Glucose 144 H Random Glucose 148 H Calcium 8.8 Magnesium 1.7 Total Bilirubin 6.1 H Direct Bilirubin 2.7 H AST 112 H ALT 30 Alkaline Phosphatase 96 Ammonia Total Creatine Kinase 395 H Troponin I High Sens 6.0 Total Protein 8.4 H Albumin 4.3 Procalcitonin 0.08 Beta HCG, Quant < 2 Stool Occult Blood Ethyl Alcohol < 10 Influenza Type A (PCR) NEGATIVE Influenza Type B (PCR) NEGATIVE RSV RNA Qual (PCR) NEGATIVE SARS-CoV-2 RNA (RT-PCR) NEGATIVE Blood Type Antibody Screen 08/01/23 08/01/23 08/02/23 21:47 22:28 01:19 MCV MCH MCHC RDW Plt Count MPV Immature Gran % (Auto) Neut % (Auto) Lymph % (Auto) Bartholomew % (Auto) Eos % (Auto) Baso % (Auto) Lymph # (Auto) Bartholomew # (Auto) Eos # (Auto) Baso # (Auto) Abs Immat Gran (auto) Absolute Neuts (auto) Absolute Nucleated RBC Nucleated RBC % (auto) Hold Purple Top PT INR Anion Gap Estim Creat Clear Calc Estimated GFR POC Glucose Random Glucose Calcium Magnesium Total Bilirubin Direct Bilirubin AST ALT Alkaline Phosphatase Ammonia 149 H Total Creatine Kinase Troponin I High Sens Total Protein Albumin Procalcitonin Beta HCG, Quant Stool Occult Blood NEGATIVE Ethyl Alcohol Influenza Type A (PCR) Influenza Type B (PCR) RSV RNA Qual (PCR) SARS-CoV-2 RNA (RT-PCR) Blood Type A Negative Antibody Screen NEGATIVE 08/02/23 08/02/23 01:52 05:29 MCV 83.5 84.3 MCH 28.0 28.7 MCHC 33.6 34.1 RDW 17.2 H 17.2 H Plt Count 25 L 25 L MPV 9.6 9.2 L Immature Gran % (Auto) Neut % (Auto) Lymph % (Auto) Bartholomew % (Auto) Eos % (Auto) Baso % (Auto) Lymph # (Auto) Bartholomew # (Auto) Eos # (Auto) Baso # (Auto) Abs Immat Gran (auto) Absolute Neuts (auto) Absolute Nucleated RBC 0.000 0.000 Nucleated RBC % (auto) 0.0 0.0 Hold Purple Top PT 21.7 H INR 1.8 H Anion Gap 11 L Estim Creat Clear Calc 126.3 Estimated GFR > 60 POC Glucose Random Glucose 104 Calcium 7.6 L D Magnesium 1.9 Total Bilirubin 5.9 H Direct Bilirubin AST 97 H ALT 23 Alkaline Phosphatase 77 Ammonia Total Creatine Kinase 964 H Troponin I High Sens Total Protein 6.8 Albumin 3.4 L Procalcitonin Beta HCG, Quant Stool Occult Blood Ethyl Alcohol Influenza Type A (PCR) Influenza Type B (PCR) RSV RNA Qual (PCR) SARS-CoV-2 RNA (RT-PCR) Blood Type Antibody Screen Assessment and Plan (1) Anemia: Status: Acute (2) Hyperbilirubinemia: Status: Acute (3) Thrombocytopenia: Status: Acute (4) Alcohol withdrawal seizure: Status: Acute Plan This is a 33 years old female who was sent from [facility] after witnessed seizure Alcohol withdrawal seizures. started on phenobarbitol protocol in the ED, will continue continue Seizure and aspiration precautions Follow CIWA Continue thiamine 100 mg IV daily multivitamins and folic acid normocytic anemia previous Hbg 11.4 according to labs from outside facility. no previous baseline in our system CBC has remained stable overnight stool occult negative continue Protonix 40 mg IV for now Thrombocytopenia ?secondary to liver dz, etoh use Continue to monitor and transfuse platelets as if needed. hypokalemia due to etoh use and decreased po intake magnesium 1.9 IV replacement ordered repeat levels this afternoon follow BMP Elevated LFTs likely Alcoholic liver dz no history of liver dz GI consult pending follow LFTs, ammonia, INR mild rhabdo CPK up to 964 from 395 likely due to seizure continue IVF follow CPK Encephalopathy likely multifactorial Recent seizure activity, medications: Versed and phenobarbital + hepatic encephalopathy resolved. awake and alert today Alcohol use disorder addiction medicine consult pending anxiety, eating disorder and depression Psychiatric consult pending Hold psych meds: hold Trazodone or mirtazapine to prevent over-sedation continue sitter for safety h/o eating disorder no specific details available follow electrolytes to monitor for refeeding syndrome and monitor po intake psych consult as above DVT prophylaxis: SCDs Code status: Full Patient requires ongoing admission for alcohol withdrawal seizures, treatment with phenobarbital, thiamine and IV fluids. She also will need close monitoring of hemoglobin and platelets. Quality Stroke Does the patient have a stroke diagnosis?: No VTE Prior VTE?: No VTE Risk Level:: Medical - moderate - high VTE Device Contraindication: N/A - Device Ordered VTE Drug Contraindication: Treatment Not Indicated
[2023-08-02] MEDS: Lactated Ringers 1,000 ML 125 ML IVCONT ×2 (14:31→22:31)
[2023-08-02 15:13] LABS: Amphetamine Screen Urine Not Detected (Not Detect); Barbiturates, Urine POSITIVE (Not Detect); Benzodiazepines Screen Urine POSITIVE (Not Detect); Cannabinoid Screen Urine POSITIVE (Not Detect); Cocaine Screen Urine Not Detected (Not Detect); Fentanyl, urine Not Detected (Not Detect); Opiate Screen Urine Not Detected (Not Detect); Phencyclidine Screen Urine Not Detected (Not Detect)
[2023-08-02 15:29] LABS: Potassium 3.4 mmol/L (3.3-5.1)
[2023-08-03] MEDS: Melatonin 3 MG TABLET PO ×2 (00:12→20:16)
[2023-08-03 03:59] VITALS: BP 139/86; PULSE 78; RESP 16; TEMP 36.6; O2SAT 99
[2023-08-03] MEDS: Pantoprazole Sodium 40 MG/10 ML VIAL IVPUSH ×2 (06:22→16:04)
[2023-08-03] MEDS: Lactated Ringers 1,000 ML 125 ML IVCONT (06:23)
[2023-08-03 06:45] LABS: Ammonia 32 umol/L (13-55)
[2023-08-03 06:59] VITALS: BP 119/78; PULSE 83; RESP 16; TEMP 36.7; O2SAT 98
[2023-08-03 07:03] LABS: Prothrombin Time 24.1 SEC (11.1-13.3)
[2023-08-03 07:16] LABS: Ferritin 56 ng/mL (10-122)
[2023-08-03 07:19] LABS: HBc Num1 0.12 S/CO (0.00-0.79); HBsAGNum1 0.84 S/CO (0.00-0.99); Hepatitis B Core Antibody Nonreactive (Nonreactive); Hepatitis B Surface Antigen Negative (Negative); ~HepC Num1 0.12 S/CO (0.00-0.79); ~Hepatitis B Surface Antibody REACTIVE (Nonreactive); ~Hepatitis C Antibody Nonreactive (Nonreactive)
[2023-08-03 07:29] LABS: Alanine Aminotransferase 23 U/L (0-31); Albumin Level 3.6 g/dL (3.5-5.0); Alkaline Phosphatase 92 U/L (39-117); Anion Gap 9 (12-20); Aspartate Amino Transferase 92 U/L (5-31); Bilirubin Direct 2.9 mg/dL (0.0-0.5); Bilirubin Total 7.1 mg/dL (0.0-1.0); Blood Urea Nitrogen < 3 mg/dL (9-16); Calcium 8.3 mg/dL (8.4-10.2); Carbon Dioxide 26 mmol/L (22-29); Chloride 105 mmol/L (96-108); Estimated Glomerular Filt Rate > 60; Glucose Random 93 mg/dL (60-115); Iron 56 mcg/dL (30-160); Magnesium 1.5 mg/dL (1.6-2.6); Percent Iron Saturation 22 % (15-50); Phosphorus 1.6 mg/dL (2.7-4.5); Potassium 3.3 mmol/L (3.3-5.1); Sodium 137 mmol/L (135-145); Total Iron Binding Capacity 256 mcg/dL (228-428); Unsaturated Iron Binding 200 ug/dL
[2023-08-03 07:34] LABS: Folate 11.1 ng/mL (> or = 4.0); Vitamin B12 1086 pg/mL (200-900)
--- NOTE | 2023-08-03 08:58 | HO.PM.IMPN ---
Subjective Subjective Date of Service: 08/03/23 Interval History: seen and examined this morning follow up for etoh withdrawal seizure patient feels anxious and is emotional this am; right eye swelling improved Review of Systems All 12 systems were reviewed and normal except as noted in HPI. Constitutional Constitutional: Denies chills and Denies fever(s) Cardiovascular Cardiovascular: Denies chest pain, Denies palpitations and Denies dyspnea Respiratory Respiratory: Denies cough and Denies dyspnea Gastrointestinal Gastrointestinal: Denies abdominal pain, Denies nausea and Denies vomiting Endocrine Endocrine: Denies palpitations Physical Exam Vital Signs: Vital Signs: Last Vital Signs Temp 98.1 F 08/03/23 06:59 Pulse 83 08/03/23 06:59 Resp 16 08/03/23 06:59 BP 119/78 08/03/23 06:59 Pulse Ox 98 08/03/23 06:59 O2 Del Method Room Air 08/03/23 06:59 BMI result Body Mass Index 21.5 Const: General: no acute distress, alert, awake and anxious Nutritional Appearance: thin Orientation/consciousness: patient oriented x3 HEENT: Other: Resp: Effort & Inspection: normal respiratory effort, able to speak in complete sentences, no respiratory distress and no use of accessory muscles Auscultation: clear to auscultation bilaterally Cardio: Rate: regular rate GI: Inspection: No distended Palpation (GI): Soft to palpation and nontender Neuro: General: patient oriented x3, moves all extremities and CN's II-XI intact bilaterally Extrem: General: Yes no pedal edema Objective Data Active Medications Folic Acid (Folic Acid 1 Mg Tablet) 1 mg PO DAILY [facility] Stop: 08/05/23 08:59 Last Admin: 08/02/23 09:10 Dose: 1 mg Documented By: HERMAN Folic Acid (Folic Acid 1 Mg Tablet) 1 mg PO DAILY [facility] Thiamine HCl 100 mg/ Sodium (Chloride) 101 mls @ 202 mls/hr IV DAILY [facility] Last Infusion: 08/02/23 11:36 Dose: Infused Documented By: PATRICIA Lactated Ringer's (Lr) 1,000 mls @ 125 mls/hr IVCONT .Q8H [facility] Last Admin: 08/03/23 06:23 Dose: 125 mls/hr Documented By: GALE Lactulose (Lactulose 20 Gm/30 Ml Solution) 30 gm PO TID [facility] Last Admin: 08/02/23 20:01 Dose: 30 gm Documented By: LUIS ALFREDO Magnesium Oxide (Magnesium Oxide 400 Mg Tablet) 400 mg PO DAILY [facility] Melatonin (Melatonin 3 Mg Tablet) 3 mg PO BEDTIME PRN PRN Reason: Insomnia Last Admin: 08/03/23 00:12 Dose: 3 mg Documented By: GALE Multivitamins/Vitamin C (Multivitamin Tablet) 1 tab PO DAILY [facility] Stop: 08/05/23 08:59 Last Admin: 08/02/23 09:10 Dose: 1 tab Documented By: HERMAN Pantoprazole Sodium (Pantoprazole Sodium 40 Mg/10 Ml Vial) 40 mg IVPUSH BID@0630,1630 [facility] Last Admin: 08/03/23 06:22 Dose: 40 mg Documented By: GALE Pharmacy Consult (Consult Rx Etoh Phenob Im/Po) 1 each MISCELLANE ONCE PRN; Protocol PRN Reason: Consult order Phenobarbital (Phenobarbital 15 Mg Tablet) 45 mg PO BID [facility]; Protocol Stop: 08/03/23 21:01 Last Admin: 08/02/23 20:00 Dose: 45 mg Documented By: LUIS ALFREDO Phenobarbital (Phenobarbital 15 Mg Tablet) 15 mg PO BID [facility]; Protocol Stop: 08/05/23 21:01 Phenobarbital (Phenobarbital 15 Mg Tablet) 15 mg PO DAILY [facility]; Protocol Stop: 08/07/23 09:01 Sodium Chloride (0.9 % Sodium Chloride Flush 3 Ml Syringe) [address] [facility] Last Admin: 08/02/23 21:07 Dose: Not Given Documented By: LUIS ALFREDO Non-Admin Reason: IV Running Labs 08/02/23 05:29 08/03/23 06:03 Labs: Laboratory Results - last 24 hr 08/02/23 08/03/23 Unknown 06:03 PT 24.1 H INR 2.0 H Anion Gap 9 L Estim Creat Clear Calc 118.0 Estimated GFR > 60 Random Glucose 93 Calcium 8.3 L D Phosphorus 1.6 L Magnesium 1.5 L Iron 56 TIBC 256 % Saturation 22 Unsat Iron Binding 200 Ferritin 56 Total Bilirubin 7.1 H Direct Bilirubin 2.9 H AST 92 H ALT 23 Alkaline Phosphatase 92 Ammonia 32 Total Creatine Kinase 472 H Total Protein 7.0 Albumin 3.6 Vitamin B12 1086 H Folate 11.1 Urine Opiates Screen Not Detected Urine Fentanyl Screen Not Detected Ur Barbiturates Screen POSITIVE H Ur Phencyclidine Scrn Not Detected Ur Amphetamines Screen Not Detected U Benzodiazepines Scrn POSITIVE H Urine Cocaine Screen Not Detected U Marijuana (THC) Screen POSITIVE H Hep Bs Antigen Negative Hep Bs Antibody REACTIVE Hep B Core Total Ab Nonreactive Hepatitis C Ab (EIA) Nonreactive Assessment and Plan (1) Alcohol withdrawal seizure: Status: Acute Plan This is a 33 years old female who was sent from [facility] after witnessed seizure Alcohol withdrawal seizures. started on phenobarbitol protocol in the ED, will continue continue Seizure and aspiration precautions Follow CIWA Continue thiamine 100 mg daily multivitamins and folic acid addiction team consult pending normocytic anemia previous Hbg 11.4 according to labs from outside facility. no previous baseline in our system CBC has remained stable overnight ; evaluated by GI: unlikely to be GI loss, likely due to marrow suppression in setting of alcohol use stool occult negative continue Protonix 40 mg IV for now Thrombocytopenia ?secondary to liver dz, etoh use Continue to monitor and transfuse platelets as if needed. hypokalemia and hypomagnesemia due to etoh use replaced Elevated LFTs likely Alcoholic liver dz Hepb and C serology -ve mild rhabdo CPK up to 964 from 395 likely due to seizure continue IVF follow CPK Encephalopathy likely multifactorial Recent seizure activity, medications: Versed and phenobarbital + elevated ammonia (hep encephalopathy) resolved. awake and alert now Alcohol use disorder addiction medicine consult pending anxiety, eating disorder and depression Psychiatric consult pending Hold psych meds: hold Trazodone or mirtazapine to prevent over-sedation continue sitter for safety h/o eating disorder no specific details available follow electrolytes to monitor for refeeding syndrome and monitor po intake psych consult as above DVT prophylaxis: SCDs Code status: Full Patient requires ongoing admission for alcohol withdrawal seizures treatment with phenobarbital. She also will need close monitoring of hemoglobin and platelets. Psych consult pending for safe disposition Quality Stroke Does the patient have a stroke diagnosis?: No VTE Prior VTE?: No VTE Risk Level:: Medical - moderate - high VTE Device Contraindication: N/A - Device Ordered VTE Drug Contraindication: Treatment Not Indicated
[2023-08-03] MEDS: Lactulose 20 GM/30 ML SOLUTION 30 GM PO ×3 (09:09→20:16)
[2023-08-03] MEDS: 0.9 % Sodium Chloride Flush 3 ML SYRINGE IVFLUSH ×3 (09:10→20:16)
[2023-08-03] MEDS: PHENobarbitaL 15 MG TABLET 45 MG PO ×2 (09:12→20:16)
[2023-08-03] MEDS: Magnesium Oxide 400 MG TABLET PO (09:12)
[2023-08-03] MEDS: Multivitamin TABLET 1 TAB PO (09:12)
[2023-08-03] MEDS: Folic Acid 1 MG TABLET PO (09:12)
[2023-08-03] MEDS: Thiamine HCL 100 MG TABLET PO (09:23)
[2023-08-03] MEDS: Magnesium Sulfate/H2O 2 GM/50 ML PIGGYBACK IV (09:23)
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
--- NOTE | 2023-08-03 12:41 | MHC.RECOVRN ---
Met with pt. in 367-1 after consult placed to Addiction Medicine for H/O AUD and alcohol W/D seizures.? Chart review completed.? Unable to get report from floor nurse as she was not available but did collaborate with gunite nozzle operator.? ? 33 year old [place]ib[place]ian speaking female BIBA to [facility] from [facility] due to two events of tonic-clonic seizures (1st - 50 seconds, 2nd 10 seconds) during her intake at the psych facility.? Pt currently inpt. For treatment and monitoring of Alcohol W/D symptoms. Upon assessment pt is sitting up in her bed.? She is awake and alert and oriented to person, place and time.? Appears somewhat confused about situation.? No W/D sx reported or observed.? He CIWA this AM was 1.? Pt appears comfortable. ACS were explained to pt and she replied by stating ?I do not have a problem with drinking.? This was a onetime situation?.? She went on to express interest in psych resources.? I explained to her a little more about treatment for VILMA.? Pt agreed to accept resources for treatment in her area ([place]).? T/W brought resources to pt. Plan is to return to pt tomorrow after she reviews the literature and explore further feelings of AUD with her if she is willing.? Report to gunite nozzle operator and advanced research programs director Tracy Kelly np.? Full Evaluation/assessment not completed due to pt?s denial.?
[2023-08-03 15:36] VITALS: BP 147/86; PULSE 91; RESP 20; TEMP 36.6; O2SAT 99
--- NOTE | 2023-08-03 18:16 | PC.NURSE ---
Pt remains with a 1:1 sitter . cooperative and tearful throughout day .Calls from both the pts Mother in [place] and pts who is out of town voicing concern about pt being discharged. Assured them there was no plan in place at this time to discharge pt. that would not happen until a safe plan was in place .
[2023-08-03 19:28] VITALS: BP 137/84; PULSE 102; RESP 16; TEMP 37.1; O2SAT 100
[2023-08-04 04:00] VITALS: BP 132/80; PULSE 91; RESP 16; TEMP 37.1; O2SAT 99
[2023-08-04] MEDS: Pantoprazole Sodium 40 MG/10 ML VIAL IVPUSH (05:45)
[2023-08-04 06:27] LABS: Hematocrit 28.5 % (37.0-47.0); Hemoglobin 9.3 g/dl (12.0-16.0); Mean Corpuscular HGB Conc 32.6 g/dl (31.0-35.0); Mean Corpuscular Hemoglobin 27.9 pg (27.0-33.0); Mean Corpuscular Volume 85.6 fL (80.0-98.0); Mean Platelet Volume 10.9 fL (9.4-12.3); Platelet Count 56 X10*3/uL (160-400); Red Blood Count 3.33 X10*6/uL (4.20-5.50); Red Cell Distribution Width 16.9 % (11.0-16.0); White Blood Count 7.8 X10*3/uL (4.8-10.8)
[2023-08-04 06:47] LABS: Magnesium 1.6 mg/dL (1.6-2.6)
[2023-08-04 07:14] VITALS: BP 123/75; PULSE 81; RESP 14; TEMP 37.2; O2SAT 98
[2023-08-04 07:20] LABS: Alanine Aminotransferase 26 U/L (0-31); Albumin Level 3.5 g/dL (3.5-5.0); Alkaline Phosphatase 94 U/L (39-117); Anion Gap 10 (12-20); Aspartate Amino Transferase 107 U/L (5-31); Bilirubin Total 6.5 mg/dL (0.0-1.0); Blood Urea Nitrogen < 3 mg/dL (9-16); Calcium 8.3 mg/dL (8.4-10.2); Carbon Dioxide 26 mmol/L (22-29); Chloride 102 mmol/L (96-108); Creatinine Clr Calc Pharmacy 114.2; Estimated Glomerular Filt Rate > 60; Glucose Random 95 mg/dL (60-115); Potassium 3.3 mmol/L (3.3-5.1); Sodium 135 mmol/L (135-145); Total Protein 6.9 g/dL (6.5-8.0)
[2023-08-04] MEDS: PHENobarbitaL 15 MG TABLET PO ×2 (08:32→20:05)
[2023-08-04] MEDS: Folic Acid 1 MG TABLET PO (08:32)
[2023-08-04] MEDS: Multivitamin TABLET 1 TAB PO (08:32)
[2023-08-04] MEDS: Magnesium Oxide 400 MG TABLET PO (08:32)
[2023-08-04] MEDS: Lactulose 20 GM/30 ML SOLUTION 30 GM PO ×3 (08:33→20:05)
[2023-08-04] MEDS: 0.9 % Sodium Chloride Flush 3 ML SYRINGE IVFLUSH ×3 (08:33→20:23)
[2023-08-04] MEDS: Thiamine HCL 100 MG TABLET PO (08:33)
--- NOTE | 2023-08-04 09:15 | HO.PM.IMPN ---
Subjective Subjective Date of Service: 08/04/23 Interval History: seen and examined this morning follow up for etoh withdrawal seizure No significant nursing events overnight, patient feels well and has no new complaints; right eye swelling improved Review of Systems All 12 systems were reviewed and normal except as noted in HPI. Constitutional Constitutional: Denies chills and Denies fever(s) Cardiovascular Cardiovascular: Denies chest pain, Denies palpitations and Denies dyspnea Respiratory Respiratory: Denies cough and Denies dyspnea Gastrointestinal Gastrointestinal: Denies abdominal pain, Denies nausea and Denies vomiting Endocrine Endocrine: Denies palpitations Physical Exam Vital Signs: Vital Signs: Last Vital Signs Temp 98.9 F 08/04/23 07:14 Pulse 81 08/04/23 07:14 Resp 14 08/04/23 07:14 BP 123/75 08/04/23 07:14 Pulse Ox 98 08/04/23 07:14 O2 Del Method Room Air 08/04/23 07:14 BMI result Body Mass Index 21.5 Const: General: cooperative, healthy appearing, comfortable, no acute distress, alert and awake Nutritional Appearance: thin Orientation/consciousness: patient oriented x3 HEENT: Other: Resp: Effort & Inspection: normal respiratory effort, able to speak in complete sentences, no respiratory distress and no use of accessory muscles Auscultation: clear to auscultation bilaterally Cardio: Rate: regular rate GI: Inspection: No distended Palpation (GI): Soft to palpation and nontender Neuro: General: patient oriented x3, moves all extremities and CN's II-XI intact bilaterally Extrem: General: Yes no pedal edema Objective Data Active Medications Folic Acid (Folic Acid 1 Mg Tablet) 1 mg PO DAILY [facility] Last Admin: 08/04/23 08:32 Dose: 1 mg Documented By: ROXANA Lactulose (Lactulose 20 Gm/30 Ml Solution) 30 gm PO TID [facility] Last Admin: 08/04/23 08:33 Dose: 30 gm Documented By: ROXANA Magnesium Oxide (Magnesium Oxide 400 Mg Tablet) 400 mg PO DAILY [facility] Last Admin: 08/04/23 08:32 Dose: 400 mg Documented By: ROXANA Melatonin (Melatonin 3 Mg Tablet) 3 mg PO BEDTIME PRN PRN Reason: Insomnia Last Admin: 08/03/23 20:16 Dose: 3 mg Documented By: LUIS ALFREDO Multivitamins/Vitamin C (Multivitamin Tablet) 1 tab PO DAILY [facility] Stop: 08/05/23 08:59 Last Admin: 08/04/23 08:32 Dose: 1 tab Documented By: ROXANA Pantoprazole Sodium (Pantoprazole Sodium 40 Mg/10 Ml Vial) 40 mg IVPUSH BID@0630,1630 [facility] Last Admin: 08/04/23 05:45 Dose: 40 mg Documented By: LUIS ALFREDO Pharmacy Consult (Consult Rx Etoh Phenob Im/Po) 1 each MISCELLANE ONCE PRN; Protocol PRN Reason: Consult order Phenobarbital (Phenobarbital 15 Mg Tablet) 15 mg PO BID [facility]; Protocol Stop: 08/05/23 21:01 Last Admin: 08/04/23 08:32 Dose: 15 mg Documented By: ROXANA Phenobarbital (Phenobarbital 15 Mg Tablet) 15 mg PO DAILY [facility]; Protocol Stop: 08/07/23 09:01 Sodium Chloride (0.9 % Sodium Chloride Flush 3 Ml Syringe) 3 ml IVFLUSH QSHIFT [facility] Last Admin: 08/04/23 08:33 Dose: 3 ml Documented By: ROXANA Thiamine HCl (Thiamine Hcl 100 Mg Tablet) 100 mg PO DAILY [facility] Last Admin: 08/04/23 08:33 Dose: 100 mg Documented By: ROXANA Labs 08/04/23 06:12 08/04/23 06:12 Labs: Laboratory Results - last 24 hr 08/04/23 06:12 MCV 85.6 MCH 27.9 MCHC 32.6 RDW 16.9 H Plt Count 56 L D MPV 10.9 Absolute Nucleated RBC 0.000 Nucleated RBC % (auto) 0.0 Anion Gap 10 L Estim Creat Clear Calc 114.2 Estimated GFR > 60 Random Glucose 95 Calcium 8.3 L Magnesium 1.6 Total Bilirubin 6.5 H AST 107 H ALT 26 Alkaline Phosphatase 94 Total Protein 6.9 Albumin 3.5 Assessment and Plan (1) Alcohol use disorder: Status: Acute Plan This is a 33 years old female who was sent from [facility] after witnessed seizure Alcohol withdrawal seizures. started on phenobarbitol protocol in the ED, will continue continue Seizure and aspiration precautions Follow CIWA Continue thiamine 100 mg daily multivitamins and folic acid addiction team consulted normocytic anemia previous Hbg 11.4 according to labs from outside facility. no previous baseline in our system CBC has remained stable ; evaluated by GI: unlikely to be GI loss, likely due to marrow suppression in setting of alcohol use stool occult negative continue PPI Thrombocytopenia ?secondary to liver dz, etoh use Continue to monitor and transfuse platelets as if needed. hypokalemia and hypomagnesemia due to etoh use replaced Elevated LFTs likely Alcoholic liver dz Hepb and C serology -ve Encephalopathy likely multifactorial Recent seizure activity, medications: Versed and phenobarbital + elevated ammonia (hep encephalopathy) resolved. awake and alert now anxiety, eating disorder and depression Psychiatric consulted Patient deemed unable to care for self and potential danger to self, continue sitter for safety Recommend dispo to inpatient psychiatry bed. Will consult CARE team for assistance as patient is now medically cleared for discharge DVT prophylaxis: SCDs. Defer Lovenox due to thrombocytopenia Code status: Full Reason for continued hospitalization: Inpatient psychiatry bed search for safe disposition Quality Stroke Does the patient have a stroke diagnosis?: No VTE Prior VTE?: No VTE Risk Level:: Medical - moderate - high VTE Device Contraindication: N/A - Device Ordered VTE Drug Contraindication: Treatment Not Indicated
--- NOTE | 2023-08-04 15:30 | MHC.RECOVRN ---
Met with pt in 367 to follow up and provide support.? Pt awake, alert, easily engages in conversation, sitting up in bed. last CIWA was a 1 and no W/D sx reported/observed..? Pt working with care team on dual dx bed for mental health and addiction. Pt continues to down play her alcohol use and is more so focused on mental health. ? Pt denies other concerns at this time.? Pt agrees to ongoing visits until she is D/C. T/w available as needed.
[2023-08-04 15:33] VITALS: BP 139/90; PULSE 107; RESP 18; TEMP 36.2; O2SAT 100
--- NOTE | 2023-08-04 17:33 | MHC.CARE ---
RAD Team conducted dual dx bedsearch, no beds were available. bed search is exhausted and will continue tomorrow
[2023-08-04 19:43] VITALS: BP 123/74; PULSE 93; RESP 18; TEMP 36.4; O2SAT 100
[2023-08-04] MEDS: Melatonin 3 MG TABLET PO (23:26)
[2023-08-05] VITALS: BP 116/67; PULSE 82; RESP 18; TEMP 36.2; O2SAT 98
[2023-08-05 00:29] VITALS: RESP 16
[2023-08-05 02:58] VITALS: BP 110/64; PULSE 77; RESP 16; TEMP 36.7; O2SAT 99
[2023-08-05] MEDS: Omeprazole 40 MG CAPSULE.DR PO (06:06)
--- NOTE | 2023-08-05 07:16 | PC.NURSE ---
Assumed care of patient at 23:15. VSS. NSR on tele. A&Ox4. Denies SI/HI. Continues with 1:1 sitter for safety as ordered. Bruise to right face. Denies vision changes or other acute issues. Denies pain. See shift assessment for full details. Handoff report given to oncoming RN at 06:45.
[2023-08-05 07:26] VITALS: BP 128/79; PULSE 74; RESP 14; TEMP 36; O2SAT 99
--- NOTE | 2023-08-05 08:26 | PC.NURSE ---
Discussed release of information with patient this morning. Patient provided verbal consent upon admission to release information to [facility]. Patient again provided verbal consent this morning to continue releasing information to .
--- NOTE | 2023-08-05 08:47 | MHC.CARE ---
RAD Team conducted a statewide dual diagnosis bed search for this individual, however, there are no available beds. The bed search is now exhausted and will be continued tomorrow if deemed appropriate.
[2023-08-05] MEDS: Thiamine HCL 100 MG TABLET PO (09:23)
[2023-08-05] MEDS: Magnesium Oxide 400 MG TABLET PO (09:23)
[2023-08-05] MEDS: PHENobarbitaL 15 MG TABLET PO (09:23)
[2023-08-05] MEDS: Folic Acid 1 MG TABLET PO (09:23)
--- NOTE | 2023-08-05 09:47 | P.PNIM_ITS ---
Subjective Subjective Date of Service: 08/05/23 Interval History: seen and examined this morning follow up for etoh withdrawal seizure No significant nursing events overnight, patient feels well and has no new complaints; right eye swelling improved Review of Systems All 12 systems were reviewed and normal except as noted in HPI. Constitutional Constitutional: Denies chills and Denies fever(s) Cardiovascular Cardiovascular: Denies chest pain, Denies palpitations and Denies dyspnea Respiratory Respiratory: Denies cough and Denies dyspnea Gastrointestinal Gastrointestinal: Denies abdominal pain, Denies nausea and Denies vomiting Endocrine Endocrine: Denies palpitations Physical Exam 2 Vital Signs: Vital Signs: Last Vital Signs Temp 96.8 F 08/05/23 07:26 Pulse 74 08/05/23 07:26 Resp 14 08/05/23 07:26 BP 128/79 08/05/23 07:26 Pulse Ox 99 08/05/23 07:26 O2 Del Method Room Air 08/05/23 07:26 BMI result Body Mass Index 21.5 Appearing in no acute distress Facial ecchymosis lung sounds are clear to auscultation heart regular rate rhythm, clear S1, S2 positive bowel sounds, abdomen is soft, nontender neuro patient is alert x3, no focal deficits Objective Data Active Medications Folic Acid (Folic Acid 1 Mg Tablet) 1 mg PO DAILY [facility] Last Admin: 08/05/23 09:23 Dose: 1 mg Documented By: PATRICIA Lactulose (Lactulose 20 Gm/30 Ml Solution) 30 gm PO TID [facility] Last Admin: 08/05/23 09:41 Dose: Not Given Documented By: PATRICIA Non-Admin Reason: Provider held medication. Magnesium Oxide (Magnesium Oxide 400 Mg Tablet) 400 mg PO DAILY [facility] Last Admin: 08/05/23 09:23 Dose: 400 mg Documented By: PATRICIA Melatonin (Melatonin 3 Mg Tablet) 3 mg PO BEDTIME PRN PRN Reason: Insomnia Last Admin: 08/04/23 23:26 Dose: 3 mg Documented By: NOÉ Omeprazole (Omeprazole 40 Mg Capsule.) 40 mg PO DAILY@0630 [facility] Last Admin: 08/05/23 06:06 Dose: 40 mg Documented By: ROSALIO Pharmacy Consult (Consult Rx Etoh Phenob Im/Po) 1 each MISCELLANE ONCE PRN; Protocol PRN Reason: Consult order Phenobarbital (Phenobarbital 15 Mg Tablet) 15 mg PO BID [facility]; Protocol Stop: 08/05/23 21:01 Last Admin: 08/05/23 09:23 Dose: 15 mg Documented By: PATRICIA Phenobarbital (Phenobarbital 15 Mg Tablet) 15 mg PO DAILY [facility]; Protocol Stop: 08/07/23 09:01 Sodium Chloride (0.9 % Sodium Chloride Flush 3 Ml Syringe) 3 ml IVFLUSH QSHIFT [facility] Last Admin: 08/05/23 09:21 Dose: Not Given Documented By: PATRICIA Non-Admin Reason: Previously Administered Thiamine HCl (Thiamine Hcl 100 Mg Tablet) 100 mg PO DAILY [facility] Last Admin: 08/05/23 09:23 Dose: 100 mg Documented By: PATRICIA Labs 08/04/23 06:12 08/04/23 06:12 Assessment and Plan (1) Alcohol use disorder: Status: Acute Plan This is a 33 years old female who was sent from [facility] after witnessed seizure Alcohol withdrawal seizures. started on phenobarbitol protocol in the ED, will continue continue Seizure and aspiration precautions Continue thiamine 100 mg daily multivitamins and folic acid addiction team consulted normocytic anemia previous Hbg 11.4 according to labs from outside facility. no previous baseline in our system CBC has remained stable ; evaluated by GI: unlikely to be GI loss, likely due to marrow suppression in setting of alcohol use stool occult negative continue PPI Thrombocytopenia etoh use Continue to monitor and transfuse platelets as if needed. hypokalemia and hypomagnesemia due to etoh use replaced Elevated LFTs likley from alcohol abuse Encephalopathy likely multifactorial Recent seizure activity, medications: Versed and phenobarbital + elevated ammonia (hep encephalopathy) resolved. awake and alert now anxiety, eating disorder and depression Psychiatric consulted Patient deemed unable to care for self and potential danger to self, continue sitter for safety Recommend dispo to inpatient psychiatry bed. CARE team > bed search currently DVT prophylaxis: SCDs. Defer Lovenox due to thrombocytopenia Attending Dr. Resendez Code status: Full Reason for continued hospitalization: Inpatient psychiatry bed search for safe disposition Quality Stroke Does the patient have a stroke diagnosis?: No VTE Prior VTE?: No VTE Risk Level:: Medical - moderate - high VTE Device Contraindication: N/A - Device Ordered VTE Drug Contraindication: Treatment Not Indicated
--- NOTE | 2023-08-05 11:23 | P.DS_ITS ---
DS: Providers Provider Date of Service: 08/05/23 Date of admission: 08/02/23 00:01 Primary care physician: Abdullahi Stiles NP Consults: 08/02/23 00:53 Consult to Psychiatry Routine Consulting Provider: Psych Covering Reason for consultation: severe depression Has provider been notified: No 08/02/23 00:54 Consult to Gastroenterology Routine Consulting Provider: Kiley Jones Reason for consultation: Liver failure, worsening anemia Has provider been notified: No 08/02/23 07:43 Addiction Medicine Routine Consulting Provider: Addiction Covering Reason for consultation: etoh use, withdrawal Has provider been notified: No 08/02/23 16:34 Consult to Wound Care Routine Reason for consultation: Facial abrasions. 08/04/23 09:26 Consult to Care Team Routine Comment: Reason for consultation: Inpatient psychiatry bed search DS: Diagnosis Discharge Diagnosis (1) Alcohol use disorder: Status: Acute DS: Summary Hospital Course Hospital Course: History and physical as per admitting provider. Rosa Elena Roy is a 33 years old woman with PMHx of significant for alcohol abuse, anxiety, eating disorder and depression was brought to the emergency department from psychiatric facility after she developed two events of tonic-clonic seizures (1st - 50 seconds, 2nd 10 seconds). She received treatment with Versed 10 mg IM. The patient hit her head upon falling down. The patient was quite somnolent in however she easily awakens and answers simple questions appropriately. She did not report any acute complaints such as pain or shortness on breath. Prior to be admitted to [facility] the patient was evaluated in the emergency department at [facility]. At that time the patient was sectioned 12. It seems like she was making suicidal comments to her over text. The patient's has had hospitalization for anemia and malnutrition. Patient denied use of illicit drug use or tobacco smoking. Her last alcoholic beverage was 3 days ago. In the ED, she was found to have stable vital sinuses for sinus tachycardia. Blood workup showed hemoglobin 9.8 (Hgb was 11.4 on 07/31/23). Platelets are 32 (prior 75). There is no leukocytosis. CO2 is 21, bilirubin 6.1 (prior 3.9) and AST is elevated. Ammonia is 149. Head, face, C-spine CT scan showed no acute findings. CXR is unremarkable. EKG showed sinus tachycardia. ED tx: Phenobarbital protocol. Magnesium 2 g IV, thiamine 200 mg IV, Zofran 4 mg IV and NS 1 L bolus. Patient treated for alcohol withdrawal seizures and normocytic anemia. Patient had witnessed tonic-clonic seizures from alcohol withdrawal. She hit her head after falling and developed severe ecchymosis throughout her entire face. She had cervical, face and head CTA all negative for any acute abnormality or acute fracture. She was treated with phenobarbital protocol. Followed by Psychiatry care team with recommendation for continued psychiatric care. Plan is for transfer to psychiatric facility for further mental health care. Educated on the importance of alcohol cessation. No seizures noted during hospitalization. Normocytic anemia. Seen evaluated by Gastroenterology, unlikely GI losses likely due to marrow suppression in the setting of alcohol use. Stool occult negative. Started on PPI. Thrombocytopenia. Secondary to alcohol abuse. No need for platelet transfusion. Hypomagnesemia and hypokalemia secondary to alcohol abuse. Repleted and resolved Elevated LFTs secondary to alcohol abuse. Encephalopathy likely multifactorial secondary to seizure activity, medications, elevated ammonia. Treated with lactulose. Resolved. History of anxiety, depression, eating disorder. Plan to transfer to psychiatric facility for continued mental health care. Time Attestation Discharge Coordination Time (in mins): 32 Quality: Safe Use of Opioids Does Pt have an Active Cancer Diagnosis on the Problem List?: No Quality: Stroke Does the patient have a stroke diagnosis?: No Physical Exam Vital Signs: Vital Signs: Last Vital Signs Temp 96.8 F 08/05/23 07:26 Pulse 74 08/05/23 07:26 Resp 14 08/05/23 07:26 BP 128/79 08/05/23 07:26 Pulse Ox 99 08/05/23 07:26 O2 Del Method Room Air 08/05/23 07:26 BMI result Body Mass Index 21.5 Appearing in no acute distress, widespread ecchymosis to face head is normocephalic atraumatic eyes pupils are PERRLA sclera is anicteric mouth throat mucous membranes are intact and moist neck is supple no lymphadenopathy, no JVD noted lung sounds are clear to auscultation heart regular rate rhythm, clear S1, S2 positive bowel sounds, abdomen is soft, nontender neuro patient is alert x3, no focal deficits Discharge Plan Discharge Anticipated Discharge Date/Time: 08/05/23 11:19 Patient Disposition: Xfer Psychiatric Hosp Discharge Diagnosis: Alcohol withdrawal seizure Fall with facial injury Normocytic anemia Thrombocytopenia Hypokalemia Hypomagnesemia Referrals: Abdullahi Stiles NP [Primary Care Provider] - 1 Week Discharge Medications: New omeprazole 40 mg Capsule,Delayed Release(Dr/Ec) 40 mg PO DAILY@0630 Qty: 30 0RF Continued trazodone 50 mg tablet 25 mg PO BEDTIME PRN (Reason: Sleep) thiamine HCl (vitamin B1) 100 mg tablet 100 mg PO DAILY Thera-Tabs Tablet 1 tab PO DAILY melatonin 3 mg tablet 3 mg PO BEDTIME PRN (Reason: Insomnia) magnesium oxide 400 mg (241.3 mg magnesium) tablet 400 mg PO DAILY folic acid 1 mg Tablet 1 mg PO DAILY mirtazapine 15 mg tablet,disintegrating 7.5 mg PO BEDTIME Discharge Orders: Discharge Order (Routine); Ordered 08/05/23 Ordered By: Cara Simental Diet: Advance to usual diet Activity on Discharge: As tolerated Stand Alone Forms: Patient Portal Discharge page Care Plan Goals: Plan to transfer to psychiatric facility for mental health care Health Concerns: Alcohol withdrawal seizure Fall with facial injury Normocytic anemia Thrombocytopenia Hypokalemia Hypomagnesemia Plan of Treatment: Follow-up with primary care provider as needed Take all medications as prescribed May continue using ice for swelling to face Assessment: See discharge summary Discharge Date/Time: 08/05/23 16:41
[2023-08-05 12:11] LABS: UPreg QC Valid YES; Urine Pregnancy NEGATIVE (NEGATIVE)
--- NOTE | 2023-08-05 12:32 | MHC.CARE ---
Pt has been accepted to [facility] ; [address] [place] [address]. Dr Badillo. ADILENE SCARLET.
--- NOTE | 2023-08-05 12:40 | MHC.CARE ---
Authorization obtained from [employer]; Ijeoma Donohue [id number] 3 Days 08/04-08/06
--- NOTE | 2023-08-05 12:46 | MHC.CM.PN ---
EMR reviewed. Patient is medically cleared for dc to i/p psych. Per Care Team clinician, patient has been accepted by [facility] in [place]. Patient aware. BLS transportation booked for 4pm. ABRASIVE COATING MACHINE OPERATOR and RN aware.
[2023-08-05 13:06] LABS: HCG Quantitative < 2 mIU/mL
--- NOTE | 2023-08-05 14:38 | HO.WOUND ---
Addendum entered by Jenny Castillo RN 08/05/23 14:41: Wound Consult: Initial 33yr old?F admitted to [facility] on 08/02/23 - See progress notes and H&P for detailed history.? Wound consult placed for facial abrasions.? Patient agreeable to assessment and photo documentation.? Arrival to bedside facial swelling significantly decreased from photo in chart - significant bruising is noted and remains - there are no open wounds noted at this time. There is a small moveable area to the right eye brow with firm induration - suspect hematoma. No topical interventions needed at this time. Patient encouraged to not use warm packs to face but ice is ok. She was encouraged to allow facial swelling to resolve - she u follow up with eye doctor outpatient however she denies double vision, no eye pain, no blurred vision, no spots and no blackout area. No topical orders needed at this time. Original Note: Wound Consult: Initial 33yr old?F admitted to [facility] on 08/02/23 - See progress notes and H&P for detailed history.? Wound consult placed for facial abrasions.? Patient agreeable to assessment and photo documentation.? Arrival to bedside facial swelling significantly creased from photo in charge significant bruising is noted - there are no open wounds noted at this time. There is a small moveable are to the right eye brow with firm induration - suspect hematoma. No topical interventions needed at this time. Patient encouraged to not use warm packs to face but ice is ok. She was encouraged to allow facial swelling to resolve - she shold follow up with eye doctor outpatient however she denies double vision, no eye pain, no blurred vision, no spots and no blackout area. No topical orders needed at this time.
[2023-08-05 15:13] VITALS: BP 141/86; PULSE 102; RESP 18; TEMP 36.9; O2SAT 100
== END 2023-08-05 16:41 | DRG 897 ==
LOC: HO.ED 23:25 → HO.EDOVER 08-02 00:09 → HO.S3 08-02 07:31
PROVIDERS: Physician Assistant Medical; Student in an Organized Health Care Education/Training Program; Admitting Provider Internal Medicine; Emergency Provider Emergency Medicine; PCP Registered Nurse General Practice; Visit Provider Nurse Practitioner Acute Care
DX: F10.132 Alcohol abuse with withdrawal with perceptual disturbance (principal); M62.82 Rhabdomyolysis; R56.9 Unspecified convulsions; F41.9 Anxiety disorder, unspecified; F32.A Depression, unspecified; K70.40 Alcoholic hepatic failure without coma; D64.9 Anemia, unspecified; E80.6 Other disorders of bilirubin metabolism; K76.82 Hepatic encephalopathy; E87.6 Hypokalemia; E83.42 Hypomagnesemia; S00.11XA Contusion of right eyelid and periocular area, initial encounter; W19.XXXA Unspecified fall, initial encounter; D69.59 Other secondary thrombocytopenia; F50.9 Eating disorder, unspecified; Z20.822 Contact with and (suspected) exposure to COVID-19; Z68.21 Body mass index [BMI] 21.0-21.9, adult; Z91.040 Latex allergy status; Z79.899 Other long term (current) drug therapy
CPT/HCPCS: 0241U; 36415; 70450; 70486; 71045; 72125; 76700; 80048; 80053; 80076; 80307; 81025; 82140; 82272; 82550; 82607; 82728; 82746; 82947; 83540; 83735; 84100; 84132; 84145; 84484; 84702; 85025; 85027; 85610; 86704; 86706; 86803; 86850; 86900; 86901; 87340; 93005; 99285; C9113; J2405; J2560; J3411; J3475; J3480; J7120; S9485

== ENCOUNTER → 2023-08-01 21:27 | Outpatient (BNV) | payer OTHER, SELFPAY | PROVIDERS: Admitting Provider Internal Medicine; Emergency Provider Emergency Medicine; Visit Provider Internal Medicine Cardiovascular Disease | DX: R56.9 Unspecified convulsions (principal); R00.0 Tachycardia, unspecified | CPT/HCPCS: 93010 ==

== ENCOUNTER → 2023-08-02 00:01 | Outpatient (BNV) | payer OTHER, SELFPAY | PROVIDERS: Admitting Provider Internal Medicine; Emergency Provider Emergency Medicine; Visit Provider Internal Medicine | DX: D64.9 Anemia, unspecified (principal); E80.6 Other disorders of bilirubin metabolism; D69.6 Thrombocytopenia, unspecified; F10.939 Alcohol use, unspecified with withdrawal, unspecified; R56.9 Unspecified convulsions | CPT/HCPCS: 99223; 99232; 99239; 99499 ==

== ENCOUNTER → 2023-08-02 00:01 | Outpatient (BNV) | payer OTHER, SELFPAY | PROVIDERS: Admitting Provider Internal Medicine; Emergency Provider Emergency Medicine; PCP Registered Nurse General Practice; Visit Provider Internal Medicine Gastroenterology | DX: D64.9 Anemia, unspecified (principal); E80.6 Other disorders of bilirubin metabolism; D69.6 Thrombocytopenia, unspecified; F10.10 Alcohol abuse, uncomplicated | CPT/HCPCS: 99222 ==

== ENCOUNTER → 2023-08-02 00:01 | Outpatient (BNV) | payer OTHER, SELFPAY | PROVIDERS: Admitting Provider Internal Medicine; Emergency Provider Emergency Medicine; Visit Provider Psychiatry & Neurology Psychiatry | DX: F39 Unspecified mood [affective] disorder (principal); F10.90 Alcohol use, unspecified, uncomplicated | CPT/HCPCS: 99223 ==